=== PATIENT | female | born 1940 | race Caucasian/White ===

== ENCOUNTER → 2016-05-23 | Outpatient (CLI) | payer OTHER, BC ==
[~2016-05-23] MED LIST: ADVAIR 250-501 EACH INH; ALDACTONE25 MG PO; ALDACTONE50 MG PO; ALLERGY RELIEF10 M3 PO; ASA5UEC PO; ASA81BEC PO; ASPIRIN325 PO; ATENOLOL 25 MG25 M1 PO; ATENOLOL 50MG T50 M1 PO; BENZONATATE100 MG PO; BREO ELLIPTA 11 EACH IH; BYSTOLIC2.5 MG PO; CEPACOL SORE T1 EAC9 PO; CIPROFLOXACIN500 M1 PO; CYCLOBENZAPRINE5 MG PO; CYMBALTA60 MG PO; DURAGESIC1 EAC2 TD; FENTANYL PA12 MCG/H1 TP; FENTANYL PA12 MCG/HR TD; FENTANYL PA25 MCG/HR TD; FENTANYL PA25 MCG/HR TRANSDERM; FLEXERIL PO; FUROSEMIDE 80 M80 M1 PO; HYDROCODON-ACE1 EA12 PO; HYDROCODON-ACE1 EAC5 PO; HYDROCODON-ACE1 EAC7 PO; HYDROCODONE-APA1 TA1 PO; LANOXIN 0.120.125 M1 PO; LASIX 80 MG TAB80 MG; LASIX PO; LEVAQUIN 500 M500 M2 PO; LIDODERM 5%1 PATC1 TRANSDERM; LORTAB 5 MG/5001 TA1 PO; LORTAB 7.5/5001 TA3 PO; METHADONE HCL5 MG PO; MOBIC7.5 MG PO; MOVANTIK25 MG PO; MUCINEX TA600 MG/TA1 PO; MUPIROCIN15 GM TOP; NEURONTIN 300300 M1 PO; NEURONTIN600 MG PO; NORCO 10-325 T1 EAC1 PO; NORCO 10-325 T1 EACH PO; NORFLEX100 MG PO; NYSTATIN-TRIAMC15 GM TOP; PACERONE 200 M200 M1 PO; PANTOPRAZOLE SO40 M1 PO; PAXIL10 MG PO; PERCOCET 5-3251 EACH PO; POTASSIUM20 PO; PREDNISONE 10 M10 M1 PO; PRILOSEC 20 MG20 MG PO; PROTONIX 20 MG20 M1 PO; REQUIP0.5 MG PO; SALINE MIST45 ML NS; SINGULAIR 10 MG10 M1 PO; SPIRIVA INH; SULFACETAMIDE 115 M1 OP; TRAMADOL 50 MG50 MG PO; TRILEPTAL300 MG PO; VENTOLIN HFA 1818 GM INH; VICODIN 5-5001 EACH PO; VITAMIN D 5050000 I1 PO; XOPENEX 0.63 MG/3 M1 INH; XOPENEX HFA15 GM IH; XOPENEX0.31 MG/3 IH; ZOFRAN ODT4 MG PO; [UNRECOGNIZED DRUG - OTHER]; fentanyl TRANSDERM
--- NOTE | ~2016-05-23 | HPC ---
[facility] [place] [address] PAIN MANAGEMENT CONSULTATION Name: REGINA WINSTON Room #: REG LOUIS Rolando#: [id number] Admission: 05/23/16 Attend Phys: Rory Xiong DO Discharge: Date of : 40 Report #: [id number] THIS REPORT FOR: //name// CC: Sammie Xiong The patient is a 76-year-old female prior seen in the pain clinic 02/01/2016. She is typically treated for lumbar radiculopathy, chronic pain, component of neuropathic pain requiring complex medication management. She has been generally stable on 37 mcg of fentanyl (112/25 mcg patch) q. 72 hours, hydrocodone 7.5/325 p.r.n. for breakthrough, meloxicam 7.5 b.i.d. and Requip 0.5 one to two at bedtime. She returns to pain clinic today noting that while medications are sufficient for providing some degree of analgesia enabling her to participate in some activities of daily living she remains quite sedentary. She notes pain is primarily in low back, left leg radiating into the groin. She has fairly classic left L2/3 radicular symptoms. She rates the pain 6/10 presently. PHYSICAL EXAMINATION: Shows a 76-year-old female, obese, with a body mass index 47-48 kilograms per meter squared. Alert and oriented to person, place and time, judged to be a reasonable historian. Blood pressure is 142/68, pulse 91, respirations 16, rises from chair using armrest with assistance, markedly antalgic gait. Lower extremities show some general debilitation and weakness. Positive straight leg raise on the left. Diffuse tenderness across the low back. We reviewed the fact that opiate medications are being used to provide analgesia adequate to support activities of daily living, not attempting to achieve a specific pain score on the 0-10 Visual Analog Scale. The current opiate medications are providing sufficient analgesia to allow the patient to participate in activities of daily living. The patient is not exhibiting any aberrant behavior suggestive of drug diversion. The patient is not having any adverse reactions to medications. The patient is not suffering from daytime somnolence or mental acuity changes. The patient is managing opiate-induced constipation with appropriate kssv-ovp-tkyommu agents and dietary considerations. The patient was counseled on concern for caution with operating a motor vehicle while using opiate medications. A physical exam was performed and the patient's functional status was evaluated. All patients with back pain were advised against the bed rest greater than 4 days and were advised to return to normal activities. Pain score assessment was noted and the treatment plan was reviewed with the patient. All current medications, both prescribed and OTC were reviewed and reconciled on the electronic medical record. Tobacco screening was accomplished and smoking cessation was advised when indicated. BMI was noted and diet/exercise modification was recommended for all patients following outside normal [address] [address] PAIN MANAGEMENT CONSULTATION Name: REGINA WINSTON Room #: REG LOUIS Marshall#: [id number] Admission: 05/23/16 Attend Phys: Rory Xiong DO Discharge: Date of : 40 Report #: [id number] parameters. I reviewed with the patient today their responsibilities to safeguard prescription medications, reviewed their responsibility to utilize medications only as prescribed by the physician. They are to seek and receive pain medications only from 1 physician group ( [facility]). They are to use 1 pharmacy and keep the clinic informed if they change pharmacies. Their responsibilities include making followup visits in a timely fashion and to avoid abrupt discontinuation of medication usage. Their responsibilities further include bringing their medications (bottles from the pharmacy with residual pills) to the visit for possible confirmation of pill counts and the patient understands it is their responsibility to submit to random drug screens to ensure both that the medications prescribed are present, and that no other controlled substances are present. All prescriptions provided today were generated electronically. ASSESSMENT: 1. Chronic pain syndrome requiring complex medication management, neuropathic pain affecting lower extremities, stable on complex medication management. Recommendations: Renew Duragesic 25 and 12 mcg q 72 hours (total 37 mcg). I have taken the liberty of writing for 2 months of current medications, hydrocodone 7.5/325 120 tablets typically lasts about 2 months, meloxicam 7.5 once a day and Requip 0.5 one to two at bedtime. 2. Acute exacerbation of lumbar radicular symptoms. Recommendation: Lumbar epidural injection under fluoroscopy. PROCEDURE NOTE: After both written and informed consent to include risk of spinal cord damage, increased pain, weakness and dural puncture, the patient was taken to the fluoroscopy suite, placed in the prone position. After sterile prep and drape, a skin wheal with lidocaine was raised. A 4-1/2 inch 20-gauge Tuohy needle was inserted in the midline at L3-L4 with good loss to resistance. Negative aspiration for cerebrospinal fluid or blood was noted. Then 1 mL of Omnipaque under biplanar fluoroscopy showed good spread within the epidural space. This was followed with 80 mg of triamcinolone plus 1 mL of 1.5% preservative-free Xylocaine, 0.5 mL Xylocaine was then injected to flush the needle; it was removed. The patient was monitored for an appropriate period of time and discharged in good and stable condition. <ELECTRONICALLY SIGNED> By: Rory Xiong DO 05/26/16 1228 [id number] Rory Xiong DO /nt
[2016-05-23 12:52] VITALS: BP 142/68
== END | disposition home or self-care (01) ==
LOC: PAIN 07:02
DX: G89.4 Chronic pain syndrome (principal); M54.16 Radiculopathy, lumbar region

== ENCOUNTER → 2016-08-05 | Outpatient (CLI) | payer OTHER, BC | LOC: RAD 13:48 | DX: Z12.31 Encounter for screening mammogram for malignant neoplasm of breast (principal) ==

== ENCOUNTER → 2016-08-11 | Outpatient (CLI) | payer OTHER, BC ==
[~2016-08-11] VITALS: Ht 162.6 cm; Wt 245.0 kg
--- NOTE | ~2016-08-11 | HPC ---
[facility] [place] [place] [address] PAIN MANAGEMENT CONSULTATION Name: REGINA WINSTON Room #: REG LOUIS Rolando#: [id number] Admission: 08/11/16 Attend Phys: Rory Xiong DO Discharge: Date of : 40 Report #: [id number] THIS REPORT FOR: //name// CC: Sammie Xiong The patient is a very pleasant 76-year-old female, typically treated for lumbar radiculopathy, neuropathic pain requiring complex medication management, comorbidity includes deconditioning and atrial fibrillation/flutter. The patient was last seen in the pain clinic 05/23/2016, given epidural injection under fluoroscopy. He returns to pain clinic today for prolonged visit, she is seen in the company of 1 daughter (she has I believe 11 children, they are all supportive). Today, we reviewed current issues. Baseline opiate medications including Duragesic at 37 mcg (25 mcg +12 mcg patches worn concurrently), hydrocodone 7.5/325 zero-three tablets a day, limit 120 tablets for 60 days; Requip 0.5 one-two at bedtime and Meloxicam 7.5 one a day continued unchanged. Today, I did review her chart, reviewing various hospitalizations, I noticed between 2011 and 2014, her EGFR has run fairly low down to 32 at one point and the high of 55. With this in mind, I suggested that we simply discontinue even the low dose Meloxicam (7.5 mg 1 a day). The patient notes she has lost some weight about 20 pounds. The daughter with whom she lives and she had both been dieting, eating smaller portion that and more fiber. We did incidentally talked about opiate-induced constipation. I trialled Movantik in the past, but it was quite costly. Ultimately, they have been using MiraLax with rare stool softener and again increasing /fiber in the diet. She notes the injections have always afforded good relief, she has had 4 epidural injections in 2015 and again last injection was 05/23/2016, at L3-L4, it afforded good relief, but she had a fair bit of increased activity subsequent and she felt she did not quiet get the longer term relief that she typically gets. She got 50-60% relief for greater than 6 weeks, but the pain has recurred. During our wide-ranging conversation, she mentioned a friend of the family who had had CVA, we did take this time to talk about end of life concerns. She does have a DPOA (durable power of deputy prosecuting attorney) and a living will. She has made known to all of her family members, primarily to 2 daughters who are RNs about her end of life wishes. [address] [address] PAIN MANAGEMENT CONSULTATION Name: MALA WINSTONREGINA C Room #: REG LOUIS Marshall#: [id number] Admission: 08/11/16 Attend Phys: Rory Xiong DO Discharge: Date of : 40 Report #: [id number] We reviewed the fact that opiate medications are being used to provide analgesia adequate to support activities of daily living, not attempting to achieve a specific pain score on the 0-10 Visual Analog Scale. The current opiate medications are providing sufficient analgesia to allow the patient to participate in activities of daily living. The patient is not exhibiting any aberrant behavior suggestive of drug diversion. The patient is not having any adverse reactions to medications. The patient is not suffering from daytime somnolence or mental acuity changes. The patient is managing opiate-induced constipation with appropriate ndny-pab-dmpmwmq agents and dietary considerations. The patient was counseled on concern for caution with operating a motor vehicle while using opiate medications. A physical exam was performed and the patient's functional status was evaluated. All patients with back pain were advised against the bed rest greater than 4 days and were advised to return to normal activities. Pain score assessment was noted and the treatment plan was reviewed with the patient. All current medications, both prescribed and OTC were reviewed and reconciled on the electronic medical record. Tobacco screening was accomplished and smoking cessation was advised when indicated. BMI was noted and diet/exercise modification was recommended for all patients following outside normal parameters. I reviewed with the patient today their responsibilities to safeguard prescription medications, reviewed their responsibility to utilize medications only as prescribed by the physician. They are to seek and receive pain medications only from 1 physician group ( [facility]). They are to use 1 pharmacy and keep the clinic informed if they change pharmacies. Their responsibilities include making followup visits in a timely fashion and to avoid abrupt discontinuation of medication usage. Their responsibilities further include bringing their medications (bottles from the pharmacy with residual pills) to the visit for possible confirmation of pill counts and the patient understands it is their responsibility to submit to random drug screens to ensure both that the medications prescribed are present, and that no other controlled substances are present. All prescriptions provided today were generated electronically. PHYSICAL EXAMINATION: Shows a pleasant 76-year-old female, alert and oriented to person, place, and time, judged to be a reasonable historian, quite oriented, little deconditioned. She uses a walker at home, she is in a wheelchair presently, she can transition by herself from chair to bed and toilet. She does use a bedside commode at night. Lower extremity strength is symmetric, +1 pretibial edema. Heart is irregularly irregular. Diffuse tenderness across the low back, positive straight leg raise bilaterally. ASSESSMENT: 1. Lumbar radiculopathy, neuropathic pain, chronic pain syndrome requiring [facility] [address] [place] [address] PAIN MANAGEMENT CONSULTATION Name: REGINA WINSTON Room #: [facility].#: [id number] Admission: 08/11/16 Attend Phys: Rory Xiong DO Discharge: Date of : 40 Report #: [id number] complex medication management, generalized deconditioning. 2. Acute exacerbation of lumbar radiculopathy secondary to spinal stenosis. RECOMMENDATION: Again prolonged visit today, greater than 25 minutes was spent counseling the patient about therapeutic options. We have elected to continue Duragesic total of 37 mcg q.72 hours. Continue hydrocodone 7.5/325, limit 120 tablets for 6 days. Discontinue Meloxicam due to modest renal function. We will continue Requip 0.5 one-two at bedtime. PROCEDURE: Lumbar epidural injection under fluoroscopy. PROCEDURE NOTE: After both written and informed consent to include risk of spinal cord damage, increased pain, weakness and dural puncture, the patient was taken to the fluoroscopy suite, placed in the prone position. After sterile prep and drape, a skin wheal with lidocaine was raised. A 4-1/2-inch 20-gauge epidural Tuohy needle was inserted in the midline at L3-L4 with good loss to resistance. Negative aspiration for cerebrospinal fluid or blood was noted. Then 1 mL of Omnipaque under biplanar fluoroscopy showed good spread within the epidural space. This was followed with 80 mg of triamcinolone plus 1 mL of 1.5% preservative-free Xylocaine, 0.5 mL Xylocaine was then injected to flush the needle; it was removed. The patient was monitored for an appropriate period of time and discharged in good and stable condition. By: [id number] Rory Xiong DO /nt
[2016-08-11 11:28] VITALS: BP 118/58
== END | disposition home or self-care (01) ==
LOC: PAIN 06:53
DX: M48.06 Spinal stenosis, lumbar region (principal); G89.4 Chronic pain syndrome; I48.91 Unspecified atrial fibrillation; F11.20 Opioid dependence, uncomplicated

== ENCOUNTER → 2016-11-27 | Outpatient (CLI) | payer OTHER, BC ==
[~2016-11-27] VITALS: Ht 162.6 cm; Wt 111.1 kg
[~2016-11-27] MED LIST changes: +ELIQUIS5 MG PO
--- NOTE | ~2016-11-27 | HPC ---
[facility] [place] [address] PAIN MANAGEMENT CONSULTATION Name: REGINA WINSTON Room #: REG LAURENDavid Marshall#: [id number] Admission: 11/27/16 Attend Phys: Rory Xiong DO Discharge: Date of : 40 Report #: [id number] THIS REPORT FOR: //name// CC: Sammie Xiong DATE OF SERVICE: 11/27/2016 The patient is a pleasant 76-year-old female being treated for chronic axial back pain, neuropathic pain requiring complex medication management, history of lumbar radiculopathy. The patient was last seen in the pain clinic 08/11/2016. We did lumbar epidural injection at that time with excellent improvement for about 2 months, though pain has recurred. She uses complex high risk medications, this includes Duragesic 37 mcg (one 12 mcg patch and one 25 mcg patch simultaneously q. 72 hours). She has prescription for hydrocodone which she typically does not require the first 2 months after epidural injection, though she does take 7.5/325 tablets up to 4 times a day in the third month after epidural injections and requires these. We had started the patient on Requip and that seems to help with restless legs syndrome, she uses a 0.5 mg tablet 1-2 at bedtime. Returns to pain clinic today noting that medications do provide sufficient analgesia to participate in activities of daily living, though she admits she is quite sedentary. Again, in the last month, she has been even more sedentary. She has poor renal function. We had discontinued meloxicam due to same. She notes pain wraps around the groin and down the front of the leg to the knee. She takes MiraLax for constipation. She is in a wheelchair today, though she states she does get up and walks the dog and do some activities throughout the day. She does describe chronic constant aching pain that she rates at 8 on a VAS. Uses ice and elevates her legs to help with pain. We reviewed the fact that opiate medications are being used to provide analgesia adequate to support activities of daily living, not attempting to achieve a specific pain score on the 0-10 Visual Analog Scale. The current opiate medications are providing sufficient analgesia to allow the patient to participate in activities of daily living. The patient is not exhibiting any aberrant behavior suggestive of drug diversion. The patient is not having any adverse reactions to medications. The patient is not suffering from daytime somnolence or mental acuity changes. The patient is managing opiate-induced constipation with appropriate zzff-tju-eqtdqkr agents and dietary considerations. The patient was counseled on concern for caution with operating a motor vehicle while using opiate medications. A physical exam was performed and the patient's functional status was evaluated. All patients with back pain were advised against the bed rest greater than 4 days and were advised to return to normal activities. Pain score assessment was [address] [address] PAIN MANAGEMENT CONSULTATION Name: REGINA WINSTON Room #: REG [facility] Rolando#: [id number] Admission: 11/27/16 Attend Phys: Rory Xiong DO Discharge: Date of : 40 Report #: [id number] noted and the treatment plan was reviewed with the patient. All current medications, both prescribed and OTC were reviewed and reconciled on the electronic medical record. Tobacco screening was accomplished and smoking cessation was advised when indicated. BMI was noted and diet/exercise modification was recommended for all patients following outside normal parameters. I reviewed with the patient today their responsibilities to safeguard prescription medications, reviewed their responsibility to utilize medications only as prescribed by the physician. They are to seek and receive pain medications only from 1 physician group ( [facility]). They are to use 1 pharmacy and keep the clinic informed if they change pharmacies. Their responsibilities include making followup visits in a timely fashion and to avoid abrupt discontinuation of medication usage. Their responsibilities further include bringing their medications (bottles from the pharmacy with residual pills) to the visit for possible confirmation of pill counts and the patient understands it is their responsibility to submit to random drug screens to ensure both that the medications prescribed are present, and that no other controlled substances are present. All prescriptions provided today were generated electronically. PHYSICAL EXAMINATION: Shows an obese 76-year-old female, BMI is 42 kilograms per meter squared. Vital signs are stable as noted on the EMR. Rises from the chair using armrest. Has markedly antalgic gait, diffuse tenderness across the low back, has somewhat of an ataxic gait, poor balance. Lower extremity strength is diminished, but symmetric. Straight leg raise is positive on the left side. There is some slight decreased left plantar flexion and flexion strength. ASSESSMENT #1: Chronic lumbar radiculopathy secondary to spinal stenosis, general debilitation, neuropathic pain affecting her feet requiring complex high risk medications. History of comorbidity including atrial fibrillation for which she is anticoagulated, she has been off of her Eliquis for 7 days. RECOMMENDATION: Continue combination Duragesic patches, 12 and 25 mcg for a total of 37 mcg q. 72 hours, continue Requip 0.5 mg 1-2 at bedtime. I have taken the liberty of writing for 3 months of current medications. We will also renew hydrocodone 7.5/325, 120 tablets. Again, this typically lasts about 3 months. ASSESSMENT #2: Acute exacerbation of lumbar radiculopathy. RECOMMENDATIONS: Epidural injection under fluoroscopy today at L3-L4. PROCEDURE NOTE: After written informed consent was obtained, the patient was placed in the supine position on the gurney, taken into the procedure room and [facility] [address] [place] [address] PAIN MANAGEMENT CONSULTATION Name: REGINA WINSTON Room #: REG [facility].#: [id number] Admission: 11/27/16 Attend Phys: Rory Xiong DO Discharge: Date of : 40 Report #: [id number] rolled onto the prone position. PROCEDURE: Lumbar epidural steroid injection. PROCEDURE NOTE: After both written and informed consent to include risk of spinal cord damage, increased pain, weakness and dural puncture, the patient was taken to the fluoroscopy suite, placed in the prone position. After sterile prep and drape, a skin wheal with lidocaine was raised. A 4-1/2-inch 20-gauge epidural Tuohy needle was inserted in the midline at L3-L4 with good loss to resistance. Negative aspiration for cerebrospinal fluid or blood was noted. Then 1 mL of Omnipaque under biplanar fluoroscopy showed good spread within the epidural space. This was followed with 80 mg of triamcinolone plus 1 mL of 1.5% preservative-free Xylocaine, 0.5 mL Xylocaine was then injected to flush the needle; it was removed. The patient was monitored for an appropriate period of time and discharged in good and stable condition. By: [id number] Rory Xiong DO /sheldon
[2016-11-27 09:50] VITALS: BP 123/67
== END | disposition home or self-care (01) ==
LOC: PAIN 07:14
DX: M48.06 Spinal stenosis, lumbar region (principal); M54.16 Radiculopathy, lumbar region; G89.29 Other chronic pain; I48.91 Unspecified atrial fibrillation; Z88.8 Allergy status to other drugs, medicaments and biological substances; Z79.891 Long term (current) use of opiate analgesic

== ENCOUNTER → 2017-03-09 | Outpatient (CLI) | payer OTHER, BC ==
[~2017-03-09] VITALS: Ht 162.6 cm; Wt 125.5 kg
[~2017-03-09] MED LIST changes: +DURAGESIC1 EACH TRANSDERM; +DURAGESIC25 MCG/HR TRANSDERM; +MIRAPEX0.5 MG PO; +NORCO 7.5-3251 EACH PO
--- NOTE | ~2017-03-09 | HPC ---
[facility] [address] [place] [address] PAIN MANAGEMENT CONSULTATION Name: REGINA WINSTON Yves Room #: REG LOUIS Marshall#: [id number] Admission: 03/09/17 Attend Phys: Rory Xiong DO Discharge: Date of : 40 Report #: [id number] THIS REPORT FOR: //name// CC: Sammie Xiong The patient is a 76-year-old female well known to pain clinic, typically treated for lumbar radiculopathy, axial back pain, neuropathic pain requiring high risk complex medication management. She was last seen in the pain clinic 11/27/2016. She was given epidural injection then and she had given a prior injection back in July. She has continued on Duragesic 25 mcg +12 mcg (total 37 mcg q.72 hours), hydrocodone 7.5/325. Typically after an epidural injection, she will not require any p.r.n. hydrocodone for a number of months, about the second or third months, she will start to use hydrocodone 7.5/325 up to 4 a day. She returns to pain clinic today. We had a prolonged visit discussing therapeutic options with the patient and her daughter. She is concerned that she is unable to afford some of her medications. She notes that the Duragesic patches are quite costly, the 12 mcg of Duragesic patch cost about $180, curiously the 25 mcg patches last at about $130. If we were to increase her to a 50 mcg patch that typically runs about $300 for 10 patches. She has been off her Eliquis for 5 days, she note pain is recurring, she rates it an 8 on VAS, pain across the low back, left hip and groin. She uses a walker nearly 100% of the time when she is up, she use it primarily for balance. She is becoming more and more sedentary. She suffers from some chronic lymphedema. She is concerned that gabapentin may be exacerbating this. She does take 600 mg b.i.d. and I did agree that this is a common side effects of gabapentin; however, we will try a lower dose if she has had increasing pain. PHYSICAL EXAMINATION: Otherwise unchanged 76-year-old female, morbidly obese, BMI is 47.5 kg/m2. Vital signs stable as noted in the EMR. Very difficult time rising from the chair, even just move to the bed. Lower extremity strength is diminished. Positive straight leg raise bilaterally, left greater than right. Diffuse tenderness across the low back. We reviewed the fact that opiate medications are being used to provide analgesia adequate to support activities of daily living, not attempting to achieve a specific pain score on the 0-10 Visual Analog Scale. The current opiate medications are providing sufficient analgesia to allow the patient to participate in activities of daily living. The patient is not exhibiting any aberrant behavior suggestive of drug diversion. The patient is not having any adverse reactions to medications. The patient is not suffering from daytime somnolence or mental acuity changes. The patient is managing opiate-induced constipation with appropriate zbod-vyb-sjxtxab agents and dietary considerations. The patient was counseled on concern for caution with operating [address] [address] PAIN MANAGEMENT CONSULTATION Name: MALA WINSTONREGINA C Room #: REG LOUIS Marshall#: [id number] Admission: 03/09/17 Attend Phys: Rory Xiong DO Discharge: Date of : 40 Report #: [id number] a motor vehicle while using opiate medications. A physical exam was performed and the patient's functional status was evaluated. All patients with back pain were advised against the bed rest greater than 4 days and were advised to return to normal activities. Pain score assessment was noted and the treatment plan was reviewed with the patient. All current medications, both prescribed and OTC were reviewed and reconciled on the electronic medical record. Tobacco screening was accomplished and smoking cessation was advised when indicated. BMI was noted and diet/exercise modification was recommended for all patients following outside normal parameters. I reviewed with the patient today their responsibilities to safeguard prescription medications, reviewed their responsibility to utilize medications only as prescribed by the physician. They are to seek and receive pain medications only from 1 physician group ( [facility]). They are to use 1 pharmacy and keep the clinic informed if they change pharmacies. Their responsibilities include making followup visits in a timely fashion and to avoid abrupt discontinuation of medication usage. Their responsibilities further include bringing their medications (bottles from the pharmacy with residual pills) to the visit for possible confirmation of pill counts and the patient understands it is their responsibility to submit to random drug screens to ensure both that the medications prescribed are present, and that no other controlled substances are present. All prescriptions provided today were generated electronically. ASSESSMENT: Symptomatic lumbar radiculopathy, axial back pain, neuropathic pain requiring high risk complex medication management. RECOMMENDATIONS: 1. Epidural injection under fluoroscopy today for acute lumbar radicular pain. 2. Regarding chronic pain concerns, neuropathic pain, axial back pain and high risk complex medication management, we discussed cost concerns for medication. I have written for both 25 and 12 mcg of Duragesic patches; however, I suggested that they start by filling only the 25 mcg patch. I have increased her hydrocodone from 7.5 to 10/325, I suggest she takes this 3-4 times a day for breakthrough pain. With a lower basal medication (decreasing Duragesic from 37-25 mcg), she may get better efficacy and the hydrocodone will be much less expensive than the second set of Duragesic patch has (the 12 mcg patches). Nonetheless, if this does not afford adequate relief, I did provide them with a prescription for the 12 mcg Duragesic patches as well and I also did generate today a prescription for hydrocodone 7.5/325, which we will leave on the chart. If the patient is unable to get buy using 25 mcg patches and has to escalate to the 37 mcg Duragesic combination, we will enable her to fruit or nut picker the lower dose, 7.5 mg hydrocodone prescription, but we will ask her to bring back the 4-week [facility] [address] [place] [address] PAIN MANAGEMENT CONSULTATION Name: REIGNA WINSTON Room #: REG [facility] Rolando#: [id number] Admission: 03/09/17 Attend Phys: Rory Xiong DO Discharge: Date of : 40 Report #: [id number] release 10 mg hydrocodone prescription. PROCEDURE: Lumbar epidural injection under fluoroscopy. PROCEDURE NOTE: After both written and informed consent to include risk of spinal cord damage, increased pain, weakness and dural puncture, the patient was taken to the fluoroscopy suite, placed in the prone position. After sterile prep and drape, a skin wheal with lidocaine was raised. A 4-1/2-inch 20-gauge epidural Tuohy needle was inserted in the midline at L4-L5 with good loss to resistance. Negative aspiration for cerebrospinal fluid or blood was noted. Then 1 mL of Omnipaque under biplanar fluoroscopy showed good spread within the epidural space. This was followed with 80 mg of triamcinolone plus 1 mL of 1.5% preservative-free Xylocaine, 0.5 mL Xylocaine was then injected to flush the needle; it was removed. The patient was monitored for an appropriate period of time and discharged in good and stable condition. <ELECTRONICALLY SIGNED> By: Rory Xiong DO 03/16/17 1401 1700 2134 Rory Xiong DO /nt
[2017-03-09 12:46] VITALS: BP 134/64
== END | disposition home or self-care (01) ==
LOC: PAIN 06:17
DX: M54.16 Radiculopathy, lumbar region (principal); G62.9 Polyneuropathy, unspecified; Z68.42 Body mass index [BMI] 45.0-49.9, adult; E66.01 Morbid (severe) obesity due to excess calories

== ENCOUNTER 2017-03-27 15:07 | Inpatient (IN) | payer OTHER, BC ==
[~2017-03-27] VITALS: Ht 162.6 cm; Wt 130.4 kg
[2017-03-27] VITALS (16 sets, daily range): BP systolic 125–155; BP diastolic 63–102
--- NOTE | ~2017-03-27 | EKG ---
[address] [address] ELECTROCARDIOGRAM REPORT Name: REGINA WINSTON Room #: 238- ADM IN M.R.#: [id number] Admission: 03/27/17 Attend Phys: Be Arellano MD Discharge: Date of : 40 Report #: [id number] THIS REPORT FOR: //name// [facility] Test Date: 2017-03-28 Test Time: 12:33:18 Pat Name: REGINA WINSTON Department: Room: 238 Gender: F Home Office Representative: ros : 1940 Requested By: Ryley Nesbitt Order Number: [id number] MD: Remington Holcomb Measurements Intervals [place] Rate: 83 P: [place]: QRS: 27 QRSD: 94 T: 32 QT: 384 QTc: 452 Interpretive Statements Atrial fibrillation Baseline wander in lead(s) V1 Compared to ECG 09/08/2014 16:00:20 Atrial flutter no longer present ST (T wave) deviation no longer present Prolonged QT interval no longer present Electronically Signed On 03-28-2017 12:50:01 REAL ESTATE APPRAISER SUPERVISOR by Remington Holcomb [email or web address] <ELECTRONICALLY SIGNED> By: Remington Holcomb MD 03/28/17 1250 1233 1233 Remington Holcomb MD /EPI
--- NOTE | ~2017-03-27 | EKG ---
[address] [address] ELECTROCARDIOGRAM REPORT Name: REGINA WINSTON Room #: 238- ADM IN M.R.#: [id number] Admission: 03/27/17 Attend Phys: Be Arellano MD Discharge: Date of : 40 Report #: [id number] THIS REPORT FOR: //name// [facility] Test Date: 2017-03-27 Test Time: 15:16:49 Pat Name: REGINA WINSTON Department: Room: [facility] Gender: F Strategic Intelligence Officer: [id number] : 1940 Requested By: Mily Mendoza Order Number: [id number] MD: Remington Holcomb Measurements Intervals [place] Rate: 149 P: [place]: QRS: 69 QRSD: 93 T: 37 QT: 294 QTc: 463 Interpretive Statements Atrial fibrillation with rapid V-rate Paired ventricular premature complexes Compared to ECG 09/08/2014 16:00:20 Electronically Signed On 03-28-2017 12:42:09 SIGNING TEACHER by Remington Holcomb [email or web address] <ELECTRONICALLY SIGNED> By: Remington Holcomb MD 03/28/17 1242 1516 Remington Holcomb MD /EDITH
--- NOTE | ~2017-03-27 | HC ---
[facility] [place] [address] CONSULTATION Name: MALA WINSTONREGINA Yves Room #: 246-P ADM IN M.R.#: [id number] Admission: 03/27/17 Attend Phys: Be Arellano MD Discharge: Date of : 40 Report #: [id number] THIS REPORT FOR: //name// CC: Be Quintanilla REASON FOR CONSULTATION: I was asked to evaluate the patient concerning bilateral pulmonary infiltrates. HISTORY OF PRESENT ILLNESS: The patient was a 77-year-old with underlying history of asthma, complained of increasing cough, congestion, shortness of breath, approximately 5 days prior to her admit. Treated with corticosteroids and Bactrim without improvement. It is noted that family member had been sick prior to this with upper respiratory tract infection. The patient was admitted now in intensive care unit on BiPAP most of the day. Today, she has been on 4 liters of oxygen per nasal cannula and doing reasonably well, although continues to have cough, which is mostly nonproductive. She remains dyspneic with exertion. She has atrial fibrillation, which has been controlled. No HIV risk factors. No travel outside the Check. IMMUNIZATIONS: Up-to-date. ALLERGIES: AUGMENTIN, CLARITHROMYCIN. MEDICATIONS: As noted on her MAR including Levaquin and Solu-Medrol. PAST MEDICAL HISTORY: Asthma, atrial fibrillation, benign neoplasm of the thyroid, coronary artery disease, gastroesophageal reflux, lymphedema of lower extremities with peripheral vascular disease, chronic back pain. FAMILY HISTORY: Noncontributory. SOCIAL HISTORY: Nonsmoker, no significant alcohol intake. REVIEW OF SYSTEMS: Denies any GI or complaints. Does have lower extremity edema. PHYSICAL EXAMINATION: VITAL SIGNS: She is afebrile, hemodynamically stable. Now on 4 liters of oxygen per nasal cannula. Obese. EXTREMITIES: 2+ lower extremity edema with venous stasis dermatitis changes with reactive erythema. HEENT: Unremarkable. NECK: Supple. LUNGS: Scattered wheezes throughout both lung reyes. No consolidation. HEART: Regular without appreciable murmur, gallop or rub. [facility] [address] [place] [address] CONSULTATION Name: MALA WINSTONREGINA C Room #: [address] [place] [address] IN M.R.#: [id number] Admission: 03/27/17 Attend Phys: Be Arellano MD Discharge: Date of : 40 Report #: [id number] ABDOMEN: Obese, nontender, no hepatosplenomegaly or mass appreciated. LABORATORY STUDIES: Sodium 138, potassium 4.5, bicarbonate 25, creatinine 0.8. Liver function test normal. BNP was 882. Hemoglobin 12.6, white count is 10.8, platelet count 205,000. Influenza antigen negative. Viral respiratory panel is pending. Urinalysis, moderate bacteria. Urine antigen negative for legionella, strep pneumo. Sputum culture, mixed berto. Blood cultures negative today. Chest x-ray: Mild cardiomegaly with interstitial infiltrates most consistent with edema. IMPRESSION: A 77-year-old with asthma, likely community-acquired pneumonia and some heart failure along with this. Still has significant oxygen requirements. So far no organisms have been identified. I am awaiting viral respiratory panel. Other consideration would be mycoplasma. Would recommend continuing antibiotic coverage. Note the patient's allergy history. We will continue her current antibiotic coverage. Although Levaquin is not first line for mycoplasma, it should be adequate for what we are dealing with at this time. We will await viral respiratory panel. We will add mycoplasma serology. Try to diurese. It is noted that her echocardiogram showed normal EF. <ELECTRONICALLY SIGNED> By: Juan Epps MD 03/31/17 0901 1300 1856 Juan Epps MD /nt
--- NOTE | ~2017-03-27 | EKG ---
[address] [address] ELECTROCARDIOGRAM REPORT Name: REGINA WINSTON Room #: 246- ADM IN M.R.#: [id number] Admission: 03/27/17 Attend Phys: Be Arellano MD Discharge: Date of : 40 Report #: [id number] THIS REPORT FOR: //name// [facility] Test Date: 2017-03-31 Test Time: 06:51:51 Pat Name: REGINA WINSTON Department: Room: [facility] Gender: F Combo Welder: DAMION : 1940 Requested By: Jenifer Augustin Order Number: [id number] MD: Gabe Manriquez Measurements Intervals [place] Rate: 84 P: [place]: QRS: 58 QRSD: 92 T: 51 QT: 394 QTc: 466 Interpretive Statements Atrial fibrillation Low voltage in the precordial leads Compared to ECG 03/30/2017 07:17:00 Low voltage is now present Electronically Signed On 03-31-2017 7:49:43 JOY OPERATOR by Gabe Manriquez [email or web address] <ELECTRONICALLY SIGNED> By: Gabe Manriquez MD, [facility] 03/31/17 0749 0651 Gabe Manriquez MD, [facility] /EPI
--- NOTE | ~2017-03-27 | 2DMMODE ---
[facility] [address] [place] [address] 2 D/M-MODE ECHOCARDIOGRAM Name: REGINA WINSTON Room #: 238-P [facility] IN ..#: [id number] Admission: 03/27/17 Attend Phys: Be Arellano MD Discharge: Date of : 40 Date of Service: 03/28/17 1237 Report #: [id number] THIS REPORT FOR: //name// APPROVED REPORT Study performed: 03/28/2017 10:51:04 EXAM: Comprehensive 2D, Doppler, and color-flow Echocardiogram Patient Location: ICU Room #: 238 Status: on-call BSA: 2.24 HR: 97 bpm BP: 139/87 mmHg Rhythm: Atrial Fibrillation Other Information Study Quality: Adequate Technically limited study due to body habitus. Indications Afib, COPD, short of breath. Hx: CHF, chronic Afib. 2D Dimensions LVEF(%): 63.08 (>50%) IVSd: 10.56 (7-11mm) LVOT Diam: 18.85 (18-24mm) LVDd: 42.29 mm PWd: 9.57 (7-11mm) LVDs: 27.97 (25-40mm) Aortic Root: 33.35 mm Betts's LVEF: 63.08 % Aortic Valve AoV Peak Tyrell.: 2.29 m/s AO Peak Gr.: 21.15 mmHg LVOT Max P.23 mmHg AO Mean Gr.: 12.32 mmHg AO V2 Mean: 1.68 m/s LVOT Max V: 1.74 m/s AO V2 VTI: 47.23 cm DANIELLE Vmax: 2.11 cm2 Mitral Valve MV Decel. Time: 237.74 ms MV E Max Tyrell.: 1.31 m/s Pulmonary Valve [facility] [address] [address] 2 D/M-MODE [facility]IO[facility] #: [facility] IN .R.#: [id number] Admission: 03/27/17 Attend Phys: Be Arellano MD Discharge: Date of : 40 Date of Service: 03/28/17 1237 Report #: [id number] PV Peak Tyrell.: 1.15 m/s PV Peak Gr.: 5.30 mmHg Tricuspid Valve TR Peak Tyrell.: 3.01 m/s RAP Estimate: 10.00 mmHg TR Peak Gr.: 36.26 mmHg Left Ventricle The left ventricle is normal size. There is normal left ventricular wall thickness. Left ventricular systolic function is normal. LVEF is 60-65%. This study is not technically sufficient to allow evaluation of the LV diastolic function due to atrial fibrillation. Right Ventricle Right ventricle is mildly dilated. The right ventricular systolic function is normal. Atria Left atrium is dilated. Right atrium is dilated. Aortic Valve Aortic valve is mildy calcified. Trace to mild aortic regurgitation. There is no aortic valvular stenosis. Mitral Valve The mitral valve is normal in structure. Moderate mitral annular calcification. Mild mitral regurgitation. No evidence of mitral valve stenosis. Tricuspid Valve The tricuspid valve is normal in structure. Moderate tricuspid regurgitation. Moderate pulmonary hypertension. Estimated PAP is 45-50mmHg. Pulmonic Valve Pulmonic valve is not well visualized. Trace pulmonic regurgitation. Great Vessels The aortic root is normal in size. The ascending aorta is normal in size. IVC is dilated and collapses <50% with inspiration. Pericardium There is no pericardial effusion. <Conclusion> [facility] [address] [place] [address] 2 D/M-MODE ECHOCARDIOGRAM Name: MALA WINSTONREGINA C Room #: 238-P [facility] IN ..#: [id number] Admission: 03/27/17 Attend Phys: Be Arellano MD Discharge: Date of : 40 Date of Service: 03/28/17 1237 Report #: [id number] The left ventricle is normal size. There is normal left ventricular wall thickness. Left ventricular systolic function is normal. LVEF is 60-65%. Right ventricle is mildly dilated. The right ventricular systolic function is normal. Left atrium is dilated. Right atrium is dilated. Aortic valve is mildy calcified. There is no aortic valvular stenosis. The mitral valve is normal in structure. Moderate mitral annular calcification. Mild mitral regurgitation. No evidence of mitral valve stenosis. The tricuspid valve is normal in structure. Moderate tricuspid regurgitation. Moderate pulmonary hypertension. Estimated PAP is 45-50mmHg. There is no pericardial effusion. <ELECTRONICALLY SIGNED> By: Remington Holcomb MD 03/28/17 1237 1237 1237 Remington Holcomb MD /INF
--- NOTE | ~2017-03-27 | EKG ---
[address] [address] ELECTROCARDIOGRAM REPORT Name: REGINA WINSTON Room #: 246-P ADM IN M.R.#: [id number] Admission: 03/27/17 Attend Phys: Be Arellano MD Discharge: Date of : 40 Report #: [id number] THIS REPORT FOR: //name// [facility] Test Date: 2017-03-29 Test Time: 09:15:26 Pat Name: ERGINA WINSTON Department: Room: 246 Gender: F Centerless Grinder: FAVIAN : 1940 Requested By: Jenifer Augustin Order Number: [id number] MD: Remington Holcomb Measurements Intervals [place] Rate: 106 P: [place]: QRS: 54 QRSD: 96 T: 22 QT: 341 QTc: 453 Interpretive Statements Atrial fibrillation Abnormal R-wave progression, late transition Compared to ECG 03/28/2017 12:33:18 No significant changes Electronically Signed On 03-29-2017 16:11:12 HASHER OPERATOR by Remington Holcomb [email or web address] <ELECTRONICALLY SIGNED> By: Remington Holcomb MD 03/29/17 1611 4 4 Remington Holcomb MD /EDITH
--- NOTE | ~2017-03-27 | EKG ---
[address] [address] ELECTROCARDIOGRAM REPORT Name: REGINA WINSTON Room #: 211- ADM IN M.R.#: [id number] Admission: 03/27/17 Attend Phys: Be Arellano MD Discharge: Date of : 40 Report #: [id number] THIS REPORT FOR: //name// [facility] Test Date: 2017-04-01 Test Time: 06:14:56 Pat Name: REGINA WINSTON Department: Room: 211 Gender: F Hand Sample Maker: DAMION : 1940 Requested By: Monroe Hay Order Number: [id number] MD: Gabe Manriquez Measurements Intervals [place] Rate: 89 P: [place]: QRS: 68 QRSD: 97 T: 51 QT: 395 QTc: 481 Interpretive Statements Atrial fibrillation Compared to ECG 03/31/2017 06:51:51 No significant changes Electronically Signed On 04-01-2017 8:54:30 GREENS PLANTER by Gabe Manriquez [email or web address] <ELECTRONICALLY SIGNED> By: Gabe Manriquez MD, [facility] 04/01/17 0854 3 Gabe Manriquez MD, [facility]ACC /EPI
--- NOTE | ~2017-03-27 | EKG ---
[address] [address] ELECTROCARDIOGRAM REPORT Name: REGINA WINSTON Room #: 246- ADM IN M.R.#: [id number] Admission: 03/27/17 Attend Phys: Be Arellano MD Discharge: Date of : 40 Report #: [id number] THIS REPORT FOR: //name// [facility] Test Date: 2017-03-30 Test Time: 07:17:00 Pat Name: REGINA WINSTON Department: Room: [facility] Gender: F Plate Mounter: DAMION : 1940 Requested By: Jenifer Augustin Order Number: [id number] MD: Gabe Manriquez Measurements Intervals [place] Rate: 83 P: [place]: QRS: 60 QRSD: 100 T: 44 QT: 396 QTc: 466 Interpretive Statements Atrial fibrillation Compared to ECG 03/29/2017 09:15:26 No significant changes Electronically Signed On 03-30-2017 8:00:24 DIRECTOR OF ELEMENTARY EDUCATION by Gabe Manriquez [email or web address] <ELECTRONICALLY SIGNED> By: Gabe Manriquez MD, [facility] 03/30/17 08 6 6 Gabe Manriquez MD, FACC /EPI
--- NOTE | ~2017-03-27 | HC ---
[facility] [place] [address] CONSULTATION Name: REGINA WINSTON Yves Room #: [facility] IN .R.#: [id number] Admission: 03/27/17 Attend Phys: Be Arellano MD Discharge: 04/02/17 Date of : 40 Report #: [id number] THIS REPORT FOR: //name// CC: Be Quintanilla DATE OF SERVICE: 03/30/2017 HISTORY OF PRESENT ILLNESS: The patient is a 77-year-old white female admitted with increased shortness of breath, noted to have acute on chronic respiratory failure. She has been diagnosed with a lower respiratory tract infection with acute hypercapnic with hypoxemic respiratory failure. She also has some interstitial edema with mild CHF. She is currently in the intensive care unit with Pulmonary Medicine involved as well as Cardiology with a history of atrial fibrillation with rapid ventricular rate. She has been on Cardizem for rate control with Eliquis for anticoagulation. She has a premorbid history of chronic lower back pain with intermittent corticosteroid injections with radiculopathy and neuropathy. This was noted to be idiopathic neuropathy per her history. She has medical complexity with generalized debilitation. We are seeing her in rehabilitation medicine consultation. PAST MEDICAL HISTORY: Includes colon cancer with colon resection in 2005, right hip replacement in 2007, left hip replacement, cholecystectomy, ablation of the heart x 3 for atrial fibrillation, CHF, GERD, lymphedema, asthma with COPD, sinusitis, atrial fibrillation with flutter, macular degeneration, lumbar spinal stenosis with peripheral neuropathy, pancreatitis, and septic arthritis. MEDICATIONS: Please see the full medication listing. ALLERGIES: CLARITHROMYCIN AND CLAVULANIC ACID. HABITS: No history of tobacco or alcohol abuse. SOCIAL HISTORY: Lives in a house with her daughter and son. The daughter is a nurse and works part-time out of the home. Typically, the daughter of the son will be with the patient. She was able to ambulate short distances with a walker by herself. She was able to get in and out of the shower by herself, but they typically wanted to have one in the family members there when she was attempting to shower. The family members live with the mother in the household. The patient sleeps in a lift chair and has a hard time getting up from low lying surfaces. REVIEW OF SYSTEMS: Did not offer any current complaints of shortness of breath or abdominal discomfort or chest pain. She does note increased shortness of breath with limited activity. She has chronic lower extremity pain complaints with her neuropathy and has a history of restless legs syndrome[place] [address] CONSULTATION Name: REGINA WINSTON Room #: [address] [place] [address] [place] ..#: [id number] Admission: 03/27/17 Attend Phys: Be Arellano MD Discharge: 04/02/17 Date of : 40 Report #: [id number] chronic low back complaints and has had intermittent injections by the pain clinic. PHYSICAL EXAMINATION: GENERAL: A 77-year-old obese female in no obvious distress. VITAL SIGNS: Last recorded temperature is 97.7, pulse 96, respirations are 22, blood pressure 145/84. NEUROLOGIC: The patient is alert, pleasant. She is a good historian. Facies are symmetric. She has functional range of motion of both upper extremities. Strength is grade 4- to 3+/5. DTRs are trace to 1. EXTREMITIES: Lower extremities, she does have some distal erythema of her lower extremities. There is a history of some chronic lymphedema. She has 1-2+ edema currently. Strength is grade 3+/5. DTRs are trace to 1. She is min assist with sit to stand. She could ambulate a few small steps with a front-wheeled walker with min assist. REVIEW OF SYSTEMS: The patient also has a history of hematuria. It is being monitored. ASSESSMENT: A 77-year-old female with the following problem list: 1. Idiopathic neuropathy. Denies a history of diabetes mellitus. 2. Medical complexity with generalized debilitation. 3. Premorbid proximal lower extremity weakness. She has been staying in a lift chair on an ongoing basis and sleeps in it. 4. Acute on chronic respiratory failure. 5. Lower respiratory tract infection. 6. Status asthmaticus. 7. Lower extremity edema with lymphedema. 8. Atrial fibrillation with rapid ventricular rate. 9. Interstitial edema. 10. Chronic lower back pain with radiculopathy. 11. Chronic obstructive pulmonary disease exacerbation. 12. Exogenous obesity. PLAN: The patient is currently in the Intensive Care Unit. We will be following along regarding her rehab and therapy needs. She certainly may benefit from a short acute in-hospital inpatient rehabilitation stay to further maximize her strength and endurance and overall functional independence prior to returning back to the home setting. Discussion was held with the patient and her two daughters. We will be glad to follow along with you regarding her rehab therapy needs as she further medically stabilizes. <ELECTRONICALLY SIGNED> By: Gerson Perkins MD 04/07/17 1414 1313 0113 Gerson Perkins MD /PMT
--- NOTE | ~2017-03-27 | HC ---
[facility] [place] [address] CONSULTATION Name: REGINA WINSTON Room #: 211-P ADM IN M.R.#: [id number] Admission: 03/27/17 Attend Phys: Be Arellano MD Discharge: Date of : 40 Report #: [id number] THIS REPORT FOR: //name// CC: Em Quintanilla MD DATE OF SERVICE: 03/27/2017 REFERRING PROVIDER: Dr. Arellano. REASON FOR CONSULTATION: Hypoxemic respiratory failure. CHIEF COMPLAINT: Shortness of breath. HISTORY OF PRESENT ILLNESS: Our group was asked to evaluate to the patient in consultation while hospitalized at [facility], seen in the Emergency Department in room 12. Discussed with Mily, Emergency Room PA and discussed with family who is at the bedside. The patient is a pleasant 77-year-old woman with a past medical history significant for persistent asthma typically recently controlled on p.r.n. levalbuterol nebulized treatments. Last weekend had been exposed to family during . There have been some cough, upper respiratory and lower respiratory congestion at that time. She started developing similar symptoms without fever, but with sweats over the last 4 days, called to our office and was prescribed Septra and Medrol Dosepak. The patient had not been improving, continues to cough, yellow and green sputum and increasing shortness of breath. The patient typically did not require supplemental oxygen, but is on 4 liters nasal cannula at this time and had hypoxemia noted on arterial blood gas. Of note, the patient was also in AFib with rapid ventricular response in the Emergency Department, has a history of chronic atrial fibrillation for which she is anticoagulated. Rate is now better controlled on diltiazem. She has received some IV Solu-Medrol and some aerosol treatments in the Emergency Department, some modest improvement. Family notes she looks somewhat better. ALLERGIES: INCLUDE AUGMENTIN, BIAXIN. PAST MEDICAL HISTORY: 1. History of persistent asthma. 2. Allergic rhinitis. 3. Atrial fibrillation. 4. History of benign neoplasm of the thyroid. 5. Coronary artery disease. 6. Gastroesophageal reflux disease. [facility] [address] [place] [address] CONSULTATION Name: REGINA WINSTON Room #: [address] [place] [address] [place] ..#: [id number] Admission: 03/27/17 Attend Phys: Be Arellano MD Discharge: Date of : 40 Report #: [id number] 7. Lower extremity lymphedema, improved according to family. 8. Peripheral vascular disease. 9. History of chronic lumbar spine pain as well as lower extremity neuropathy chronically treated recently with an injection 2 weeks ago as well as recent increase in her Duragesic packs strength to 25 mcg. SOCIAL HISTORY: The patient is a never smoker, no alcohol consumption. FAMILY HISTORY: Significant for coronary artery disease. REVIEW OF SYSTEMS: CONSTITUTIONAL: No fevers, but some sweats. ENT: Some upper respiratory congestion, but no rhinorrhea, dysphagia, oropharyngeal pain. CARDIOVASCULAR: No chest pains, a known history of AFib. GASTROINTESTINAL: No nausea, vomiting, diarrhea, constipation or abdominal pain. GENITOURINARY: No dysuria, no frequency or hematuria. INTEGUMENT: Denies any rash. MUSCULOSKELETAL: Lymphedema is improved. No new joint pains. NEUROLOGIC: History of chronic lumbar spine and lower extremity neuropathy. PHYSICAL EXAMINATION: VITAL SIGNS: Afebrile, pulse 108 and irregular, respiratory rate 26, blood pressure 148/88. GENERAL: This is an obese and elderly woman in moderate respiratory distress, somewhat somnolent. HEENT: Clear oropharynx. No oropharyngeal lesions, significant dental loss noted. No erythema. NECK: Supple, no lymphadenopathy, no stridor. LUNGS: Diminished, prolonged expiratory phase, use of some accessory muscles with extensive expiratory wheezes noted throughout. CARDIOVASCULAR: Heart was irregular and tachycardic. No murmurs could be appreciated. ABDOMEN: Soft, nontender, no masses, no hepatosplenomegaly. EXTREMITIES: Only trace edema. INTEGUMENT: No rash seen. LABORATORY DATA: White blood cell count 9.5, hemoglobin 15, hematocrit 47, platelet count is 209, 75% segmented neutrophils, eosinophil count minimal, INR 1.0. Sodium 138, potassium 4.4, chloride 103, bicarbonate 29, BUN 21, creatinine 1.0, glucose 164. Liver enzymes normal. ProBNP 1321. Arterial blood gas on room air revealed pH 7.36, pCO2 of 37, pO2 56, bicarbonate of 21, lactate 2.28. IMPRESSION: [facility] [address] [place] [address] CONSULTATION Name: MALA WINSTONREGINA Yves Room #: 211-P ADM IN M.R.#: [id number] Admission: 03/27/17 Attend Phys: Be Arellano MD Discharge: Date of : 40 Report #: [id number] 1. Status asthmaticus. 2. Acute hypoxemic respiratory failure. 3. Lower respiratory infection, likely early pneumonia, community acquired. 4. Atrial fibrillation with rapid ventricular response, rate controlled better at present. 5. History of diminished mobility due to chronic lumbar spine disease and neuropathy. SUGGESTIONS: 1. Systemic steroids. 2. Frequent bronchodilators. We will use levalbuterol, given her rapid ventricular response. 3. Levofloxacin. 4. Sputum culture. 5. Blood cultures. 6. Nasal swab for rapid influenza screen and respiratory viral panel. 7. Follow up chest x-ray in a.m. 8. Follow up arterial blood gas. 9. Given increased work of breathing, we will try BiPAP this evening, may take some lorazepam, sedation to tolerate further. 10. ICU care. 11. Hydration. 12. N.p.o. tonight. 13. Guaifenesin. 14. Consider adding additional airway clearance to include flutter valve and/or IPV if tolerated. 15. We will not evaluate for pulmonary embolism at this time given findings on exam and history of anticoagulation with Eliquis. 16. Additional recommendations to follow. Discussed at length with family and ICU staff. Total critical care time 40 minutes, not including any procedures. <ELECTRONICALLY SIGNED> By: Boni Randle MD 04/02/17 1057 1704 0855 Boni Randle MD /nt
[2017-03-27 15:19] LABS: ABG SAMPLE TYPE ARTERIAL; BE(vivo) -4.2 mmol/L (-2 to +3); HCO3 20.5 mmol/L (22.0-26.0); LACTATE 2.28 mmol/L (0.5-2.0); O2(CT) 19.6 mL/dL (15.0-23.0); O2Hb 88.1 % (92.0-98.0); PCO2 36.8 mmHg (35.0-45.0); PO2 55.5 mmHg (80.0-100.0); STICK SITE L.BRACHIAL; pH 7.364 (7.360-7.450); sO2 88.1 % (92.0-98.0); tCO2 21.6 mmol/L (24.0-30.0)
[2017-03-27 15:38] LABS: ABSOLUTE NEUTROPHILS 7.2 thou/uL (1.4-8.2); BASOPHILS 0.5 % (0.0-2.0); EOSINOPHILS 0.5 % (0.0-3.0); HEMATOCRIT 47.2 % (37.0-47.0); LYMPHOCYTES 11.5 % (24.0-44.0); MANUAL DIFF NO; MCH 27.1 pg (26.0-34.0); MCHC 31.7 g/dL (28.0-37.0); MCV 85.3 fL (80.0-100.0); MONOCYTES 11.9 % (1.0-8.0); PLATELET COUNT 209 thou/uL (150-400); POLYS 75.6 % (36.0-66.0); RBC 5.53 mil/uL (4.20-5.00); RDW 14.6 % (10.5-14.5); WBC 9.5 thou/uL (4.0-11.0)
[2017-03-27 15:42] LABS: ANION GAP 6 mmol/L (7-16); BUN 21 mg/dL (7-18); CALCIUM 9.2 mg/dL (8.5-10.1); CHLORIDE 103 mmol/L (98-107); CO2 29 mmol/L (21-32); GLUCOSE 164 mg/dL (74-106); POTASSIUM 4.4 mmol/L (3.5-5.1); SODIUM 138 mmol/L (136-145)
[2017-03-27 15:50] LABS: PROTIME 10.6 Seconds (9.3-11.4)
[2017-03-27 15:53] LABS: ALBUMIN 3.6 g/dL (3.4-5.0); ALKALINE PHOSPHATASE 105 U/L (46-116); SGOT 30 U/L (15-37); SGPT 25 U/L (30-65); TOTAL BILIRUBIN 0.5 mg/dL (<0.1-1.0); TOTAL PROTEIN 8.6 g/dL (6.4-8.2); TROPONIN-I < 0.04 ng/mL (<0.06)
[2017-03-27 21:27] LABS: ABG SAMPLE TYPE ARTERIAL; BE(vivo) -2.9 mmol/L (-2 to +3); HCO3 21.8 mmol/L (22.0-26.0); LACTATE 1.85 mmol/L (0.5-2.0); O2(CT) 19.8 mL/dL (15.0-23.0); O2Hb 96.3 % (92.0-98.0); PCO2 37.8 mmHg (35.0-45.0); PO2 93.2 mmHg (80.0-100.0); Pressure Support 5 cm H20; STICK SITE R.BRACHIAL; pH 7.378 (7.360-7.450); tCO2 22.9 mmol/L (24.0-30.0)
[2017-03-27 21:33] LABS: URINE BILIRUBIN NEGATIVE (Negative); URINE BLOOD 2+ (Negative); URINE COLOR YELLOW; URINE GLUCOSE-RANDOM* NEGATIVE (Negative); URINE KETONES NEGATIVE (Negative); URINE NITRITE NEGATIVE (Negative); URINE PROTEIN (DIPSTICK) TRACE (Negative); URINE SPECIFIC GRAVITY >= 1.030 (1.003-1.035); URINE UROBILINOGEN 0.2 E.U./dl (0.2-1.0)
[2017-03-27 21:43] LABS: CASTS None Seen /LPF (None Seen); SQUAMOUS 4-10 Moderate /LPF (0-3); URINE WBC 0-5 Rare /HPF (0-5)
[2017-03-27 21:44] LABS: CRYSTALS None Seen /LPF (None Seen)
[2017-03-28] VITALS (22 sets, daily range): BP systolic 97–160; BP diastolic 63–126
[2017-03-28 05:28] LABS: ABG SAMPLE TYPE ARTERIAL; BE(vivo) -1.4 mmol/L (-2 to +3); HCO3 25.4 mmol/L (22.0-26.0); LACTATE 1.87 mmol/L (0.5-2.0); O2(CT) 20.3 mL/dL (15.0-23.0); O2Hb 96.9 % (92.0-98.0); PCO2 50.8 mmHg (35.0-45.0); PO2 102.7 mmHg (80.0-100.0); STICK SITE R.BRACHIAL; sO2 97.2 % (92.0-98.0)
[2017-03-28 05:29] LABS: Pressure Support 6 cm H20
[2017-03-28 05:30] LABS: pH 7.317 (7.360-7.450)
[2017-03-28 06:48] LABS: HEMATOCRIT 42.8 % (37.0-47.0); HEMOGLOBIN 13.8 gm/dL (12.0-15.0); MCH 27.1 pg (26.0-34.0); MCHC 32.2 g/dL (28.0-37.0); MCV 84.4 fL (80.0-100.0); RBC 5.08 mil/uL (4.20-5.00); RDW 14.3 % (10.5-14.5); WBC 6.3 thou/uL (4.0-11.0)
[2017-03-28 06:57] LABS: CALCIUM 9.2 mg/dL (8.5-10.1); CREATININE 0.9 mg/dL (0.6-1.0); MAGNESIUM 2.3 mg/dL (1.8-2.4); POTASSIUM 4.4 mmol/L (3.5-5.1)
[2017-03-29] VITALS (24 sets, daily range): BP systolic 110–156; BP diastolic 55–113
[2017-03-29 04:42] LABS: HEMOGLOBIN 13.6 gm/dL (12.0-15.0); MCH 26.6 pg (26.0-34.0); MCV 85.6 fL (80.0-100.0); RBC 5.14 mil/uL (4.20-5.00); RDW 14.3 % (10.5-14.5); WBC 6.6 thou/uL (4.0-11.0)
[2017-03-29 04:57] LABS: ALBUMIN 3.2 g/dL (3.4-5.0); CALCIUM 9.2 mg/dL (8.5-10.1); CREATININE 1.1 mg/dL (0.6-1.0); POTASSIUM 4.2 mmol/L (3.5-5.1); TOTAL BILIRUBIN 0.3 mg/dL (<0.1-1.0); TOTAL PROTEIN 7.4 g/dL (6.4-8.2)
[2017-03-29 05:19] LABS: ABG SAMPLE TYPE ARTERIAL; BE(vivo) -2.1 mmol/L (-2 to +3); HCO3 23.5 mmol/L (22.0-26.0); LACTATE 3.14 mmol/L (0.5-2.0); O2(CT) 18.7 mL/dL (15.0-23.0); O2Hb 96.1 % (92.0-98.0); PCO2 43.4 mmHg (35.0-45.0); PO2 89.2 mmHg (80.0-100.0); pH 7.352 (7.360-7.450); sO2 96.4 % (92.0-98.0); tCO2 24.9 mmol/L (24.0-30.0)
[2017-03-29 05:20] LABS: ABG COMMENT BIPAP 14/ 6; Pressure Support 8 cm H20; STICK SITE R.BRACHIAL
[2017-03-30] VITALS (23 sets, daily range): BP systolic 113–152; BP diastolic 64–123
[2017-03-30 04:59] LABS: HEMOGLOBIN 12.6 gm/dL (12.0-15.0); MCH 26.8 pg (26.0-34.0); MCHC 31.5 g/dL (28.0-37.0); MCV 85.1 fL (80.0-100.0); RBC 4.71 mil/uL (4.20-5.00); RDW 14.5 % (10.5-14.5); WBC 10.8 thou/uL (4.0-11.0)
[2017-03-30 05:18] LABS: ABG SAMPLE TYPE ARTERIAL; BE(vivo) 0.5 mmol/L (-2 to +3); HCO3 25.7 mmol/L (22.0-26.0); LACTATE 1.82 mmol/L (0.5-2.0); O2(CT) 17.8 mL/dL (15.0-23.0); O2Hb 95.6 % (92.0-98.0); PCO2 43.8 mmHg (35.0-45.0); PO2 76.8 mmHg (80.0-100.0); pH 7.387 (7.360-7.450); sO2 95.2 % (92.0-98.0); tCO2 27.1 mmol/L (24.0-30.0)
[2017-03-30 05:18] LABS: ALBUMIN 2.9 g/dL (3.4-5.0); CALCIUM 9.3 mg/dL (8.5-10.1); CREATININE 0.8 mg/dL (0.6-1.0); POTASSIUM 4.5 mmol/L (3.5-5.1); TOTAL BILIRUBIN 0.3 mg/dL (<0.1-1.0); TOTAL PROTEIN 6.5 g/dL (6.4-8.2)
[2017-03-30 05:19] LABS: STICK SITE R.RADIAL
[2017-03-30 11:53] LABS: URINE BILIRUBIN NEGATIVE (Negative); URINE BLOOD 3+ (Negative); URINE GLUCOSE-RANDOM* NEGATIVE (Negative); URINE KETONES NEGATIVE (Negative); URINE LEUKOCYTES-REFLEX TRACE (Negative); URINE PROTEIN (DIPSTICK) 1+ (Negative); URINE UROBILINOGEN 0.2 E.U./dl (0.2-1.0)
[2017-03-30 11:54] LABS: URINE COLOR PINK
[2017-03-30 11:57] LABS: CASTS None Seen /LPF (None Seen); CRYSTALS None Seen /LPF (None Seen); SQUAMOUS 0-3 Few /LPF (0-3); URINE RBC >20 Many /HPF (0-2)
[2017-03-30 11:58] LABS: URINE WBC-REFLEX 6-15 Few /HPF (0-5)
[2017-03-31] VITALS (18 sets, daily range): BP systolic 92–148; BP diastolic 55–83
[2017-03-31 04:31] LABS: HEMATOCRIT 37.8 % (37.0-47.0); HEMOGLOBIN 12.1 gm/dL (12.0-15.0); MCH 27.1 pg (26.0-34.0); MCV 84.7 fL (80.0-100.0); RBC 4.47 mil/uL (4.20-5.00); RDW 14.3 % (10.5-14.5)
[2017-03-31 04:47] LABS: ALBUMIN 2.8 g/dL (3.4-5.0); CALCIUM 8.7 mg/dL (8.5-10.1); CREATININE 0.9 mg/dL (0.6-1.0); POTASSIUM 4.5 mmol/L (3.5-5.1); TOTAL BILIRUBIN 0.4 mg/dL (<0.1-1.0); TOTAL PROTEIN 6.4 g/dL (6.4-8.2)
[2017-03-31 09:12] LABS: ABG SAMPLE TYPE ARTERIAL; BE(vivo) 1.3 mmol/L (-2 to +3); HCO3 25.3 mmol/L (22.0-26.0); LACTATE 2.17 mmol/L (0.5-2.0); O2(CT) 18.4 mL/dL (15.0-23.0); O2Hb 95.6 % (92.0-98.0); PCO2 37.7 mmHg (35.0-45.0); PO2 77.7 mmHg (80.0-100.0); pH 7.444 (7.360-7.450); tCO2 26.4 mmol/L (24.0-30.0)
[2017-03-31 09:13] LABS: STICK SITE L.RADIAL
[2017-03-31 23:10] LABS: INFLUENZA B Negative (Negative); METAPNEUMOVIRUS Negative (Negative)
[2017-04-01 04:04] VITALS: BP 138/76
[2017-04-01 04:27] LABS: HEMATOCRIT 38.7 % (37.0-47.0); HEMOGLOBIN 12.6 gm/dL (12.0-15.0); MCH 27.1 pg (26.0-34.0); MCHC 32.6 g/dL (28.0-37.0); MCV 83.1 fL (80.0-100.0); RBC 4.66 mil/uL (4.20-5.00); WBC 10.8 thou/uL (4.0-11.0)
[2017-04-01 04:41] LABS: ALBUMIN 2.9 g/dL (3.4-5.0); CALCIUM 8.4 mg/dL (8.5-10.1); CREATININE 0.9 mg/dL (0.6-1.0); PHOSPHORUS 2.7 mg/dL (2.5-4.9)
[2017-04-01 07:10] VITALS: BP 138/67
[2017-04-01 11:41] VITALS: BP 122/59
[2017-04-01 15:42] VITALS: BP 122/56
[2017-04-01 19:51] VITALS: BP 134/57
[2017-04-02 03:10] VITALS: BP 152/69
[2017-04-02 07:15] VITALS: BP 139/61
[2017-04-02] MEDS ORDERED: ALBUTEROL2.5 MG/0.5 INH (08:05)
[2017-04-02] MEDS ORDERED: LEVALBUTER0.63 MG/3 INH (08:05)
[2017-04-02] MEDS ORDERED: CARDIZEM CD120 MG PO (08:06)
[2017-04-02] MEDS ORDERED: LASIX 40 MG TAB40 M1 PO (08:06)
[2017-04-02] MEDS ORDERED: SOLU-MEDRO40 MG/1 M2 IV PUSH (08:07)
[2017-04-02] MEDS ORDERED: HUMALOG100 UNIT/1 SUBQ (08:07)
[2017-04-02] MEDS ORDERED: PULMICORT0.5 MG/21 INH (08:07)
[2017-04-02 08:08] LABS: GLOMERULR BASEM MEMBRN AB 3 units (0-20)
[2017-04-02 08:20] VITALS: BP 139/61
[2017-04-02 09:09] LABS: ANTI-DNA SCREEN <1 IU/mL (0-9); ANTI-RNP <0.2 AI (0.0-0.9)
[2017-04-02 16:07] LABS: c-ANCA <1:20 titer (Neg:<1:20); p-ANCA <1:20 titer (Neg:<1:20)
== END 2017-04-02 11:05 | DRG 871 ==
LOC: ER 15:07 → ICU 16:30 → EROBS 16:30 → ICU 18:12 → 2N 03-31 16:20
PROVIDERS: Hospitalist; Internal Medicine Pulmonary Disease; Nurse Practitioner Family
PROC: 5A09557 Assistance with Respiratory Ventilation, Greater than 96 Consecutive Hours, Continuous Positive Airway Pressure (ICD-10-PCS; principal; 2017-03-27)
PROC: B24BZZ4 Ultrasonography of Heart with Aorta, Transesophageal (ICD-10-PCS; 2017-03-28)
DX: A41.9 Sepsis, unspecified organism (principal); J96.21 Acute and chronic respiratory failure with hypoxia; J18.9 Pneumonia, unspecified organism; J96.22 Acute and chronic respiratory failure with hypercapnia; J44.1 Chronic obstructive pulmonary disease with (acute) exacerbation; J45.902 Unspecified asthma with status asthmaticus; I48.92 Unspecified atrial flutter; Z68.42 Body mass index [BMI] 45.0-49.9, adult; E87.2 Acidosis; J44.0 Chronic obstructive pulmonary disease with (acute) lower respiratory infection; I48.91 Unspecified atrial fibrillation; I50.9 Heart failure, unspecified; K21.9 Gastro-esophageal reflux disease without esophagitis; I73.9 Peripheral vascular disease, unspecified; H35.30 Unspecified macular degeneration; B97.4 Respiratory syncytial virus as the cause of diseases classified elsewhere; Z96.643 Presence of artificial hip joint, bilateral; G60.9 Hereditary and idiopathic neuropathy, unspecified; G89.4 Chronic pain syndrome; M54.16 Radiculopathy, lumbar region; E66.01 Morbid (severe) obesity due to excess calories; Z98.42 Cataract extraction status, left eye; Z98.41 Cataract extraction status, right eye; Z85.038 Personal history of other malignant neoplasm of large intestine; Z90.49 Acquired absence of other specified parts of digestive tract; Z79.01 Long term (current) use of anticoagulants; Z79.51 Long term (current) use of inhaled steroids; Z79.899 Other long term (current) drug therapy; Z88.1 Allergy status to other antibiotic agents; Z88.8 Allergy status to other drugs, medicaments and biological substances; Z28.21 Immunization not carried out because of patient refusal; Z82.49 Family history of ischemic heart disease and other diseases of the circulatory system; Z82.5 Family history of asthma and other chronic lower respiratory diseases; Z83.3 Family history of diabetes mellitus; Z80.8 Family history of malignant neoplasm of other organs or systems
CPT/HCPCS: 10078; 10081

== ENCOUNTER 2017-04-02 07:59 | Inpatient (IN) | payer OTHER, BC ==
[~2017-04-02] VITALS: Ht 162.6 cm; Wt 123.0 kg
--- NOTE | ~2017-04-02 | HC ---
[facility] [place] [address] CONSULTATION Name: REGINA WINSTON Room #: 501-A [facility] IN ..#: [id number] Admission: 04/02/17 Attend Phys: Gerson Perkins MD Discharge: Date of : 40 Report #: [id number] THIS REPORT FOR: //name// CC: Gerson Elenanifer Socorro DATE OF SERVICE: 04/04/2017 NEUROBEHAVIORAL STATUS EXAMINATION AGE: 77. ATTENDING PHYSICIAN: Gerson Perkins MD INDUSTRIAL SWEEPER CLEANER: Kye Childers, PhD CLINICAL PRESENTATION: The patient is a 77-year-old female admitted to the [facility] Rehabilitation Unit for a comprehensive inpatient rehabilitation program to improve functional mobility, activities of daily living and self-care and mental status secondary to deficits from an idiopathic neuropathy. Her diagnoses on admission include medical complexity with generalized debilitation, premorbid proximal lower extremity weakness, acute on chronic respiratory failure, lower respiratory tract infection, status asthmaticus, lower extremity edema with lymphedema, atrial fibrillation with rapid ventricular rate, interstitial edema, chronic low back pain with radiculopathy, COPD exacerbation and exogenous obesity. A complete description of her medical condition and history can be found in her medical record. Neuropsychological consultation was requested to provide assistance in the assessment of cognitive and emotional status and to provide recommendations and services. Prior to this most recent medical event, she was living with the assistance of her son and daughter in her home. The patient has 10 biological and one adopted child. 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 She is a high school graduate with 4 years of college. TECHNIQUES UTILIZED: Clinical interview, review of medical records, staff consultation and behavioral observation, family interview -- son and daughter, mini mental status exam 2 standard version and clock drawing. EXAMINATION FINDINGS: The patient was alert and cooperative with the assessment. She accurately described events surrounding her admission. There is no evidence of aphasia. Her thoughts are logical and goal oriented. She does not report auditory or visual hallucinations. She reports increased anxiety as a result of her medical condition and current fatigue. [facility] [address] [place] [address] CONSULTATION Name: MALA WINSTONREGINA C Room #: 501-A [facility] IN [facility].#: [id number] Admission: 04/02/17 Attend Phys: Gerson Perkins MD Discharge: Date of : 40 Report #: [id number] difficulty with memory and word finding are described. Her family is very attentive and provide assistance with necessary activities of daily living. Her performance on the MMSE 2 brief version is within normal limits with a raw score of 14 of 16. She is 3/3 for initial registration, 5/5 for orientation to time, 5/[address] and 1/3 for immediate recall of 3 items after a brief time delay and distraction. Her performance improved on the MMSE 2 standard version with a raw score of 28 of 30. She was 5/5 for serial sevens, 2/2 for naming, 1/1 for repetition, 3/3 for auditory comprehension. She could read and follow single command, write a sentence and copy a simple geometric design. The patient had difficulty with clock drawing. She was able to place the numbers on the clock, but visual spatial disorganization interfered with successful placement of the hands at a specific time. DIAGNOSTIC IMPRESSION: 1. 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 2. Adjustment disorder with anxious mood. RECOMMENDATIONS: The patient has a supportive family and very structured home environment. She describes difficulty with sleep, which will likely improve if increased activity can be maintained during the day. She is described as sleeping more during the day with remaining awake at night. The use of relaxation techniques will be of benefit to reduce anxiety. Breathing strategies along with guided attention should help manage anxiety more consistently. Practicing relaxation strategy during the day as well as developing an active and structured schedule will be of benefit to assist overall level of functioning. Thank you very much for allowing me to provide the consultation on this patient. <ELECTRONICALLY SIGNED> By: Kye Childers, PhD 04/11/17 1500 1316 17 Kye Childers, PhD /nt
--- NOTE | ~2017-04-02 | H ---
[facility] [place] [address] HISTORY AND PHYSICAL Name: REGINA WINSTON Room #: 514-P ADM IN M.R.#: [id number] Admission: 04/02/17 Attend Phys: Gerson Perkins MD Discharge: Date of : 40 Report #: [id number] THIS REPORT FOR: //name// CC: Gerson Quintanilla DATE OF SERVICE: 04/02/2017 HISTORY AND PHYSICAL/POST-ADMISSION PHYSICIAN EVALUATION HISTORY OF PRESENT ILLNESS: This is a 77-year-old white female who was originally admitted to [facility] with increased shortness of breath, was noted to have acute on chronic respiratory failure. She was diagnosed with a lower respiratory tract infection with acute hypercapnic with hypoxemic respiratory failure. She was also noted to have some interstitial edema with mild congestive heart failure. She was in the intensive care unit. She has history of atrial fibrillation with rapid ventricular rate. She was on Cardizem for rate control with Eliquis for anticoagulation. She has a premorbid history of chronic lower back pain with intermittent corticosteroid steroid injections with radiculopathy and neuropathy. She also has a noted idiopathic neuropathy per her history. Infectious Disease is involved with noted respiratory syncytial virus. Her respiratory failure was thought due to asthma, CHF and RSV. She has been diuresed with tapering of steroids. She has been admitted now for acute in-hospital inpatient rehabilitation. PAST MEDICAL HISTORY: Colon cancer with resection in 2005, right hip replacement 2007, left hip replacement, cholecystectomy, ablation of heart x 3 for atrial fibrillation, CHF, GERD, lymphedema, asthma with COPD, sinusitis, atrial fibrillation with flutter, macular degeneration, lumbar spinal stenosis with peripheral neuropathy, pancreatitis and septic arthritis. She also has exogenous obesity. MEDICATIONS: Please see the full medication listing. Each of these was individually reconciled and includes herbals, vitamins, and supplements. ALLERGIES: CLARITHROMYCIN AND CLAVULANIC ACID. HABITS: No history of tobacco or alcohol abuse. SOCIAL HISTORY: Lives in a house with her daughter and son. The daughter is a nurse and works part-time out of the home. Typically, the daughter or the son will be with the patient. She was premorbidly able to ambulate short distances with a walker by herself. She was able to get in and out of the shower by herself, but they typically wanted to have at least one family member there when she was attempting shower. Family members live with the mother in the household. The patient sleeps in a lift chair and has a hard time getting up [address] [address] HISTORY AND PHYSICAL Name: REGINA WINSTON Room #: 514-P [facility] IN ..#: [id number] Admission: 04/02/17 Attend Phys: Gerson Perkins MD Discharge: Date of : 40 Report #: [id number] from a low lying surfaces. REVIEW OF SYSTEMS: No current complaints of chest pain or shortness of breath. She does note increased shortness of breath with activity. She has a prior history of restless legs syndrome. She has the chronic back complaints with intermittent injections as noted above. No focal extremity pain complaints at the current time. PHYSICAL EXAMINATION: GENERAL: A 77-year-old obese white female, in no obvious distress. VITAL SIGNS: Last recorded temperature 98.8, pulse 95, respirations 20, blood pressure 136/71. NEUROLOGIC: The patient is pleasant. She is alert. Facies are symmetric. EXTREMITIES: She has functional range of motion of both upper extremities with strength grade 4- to 3+/5. DTRs are trace to 1. In her lower extremities, she does have some distal erythema of her lower extremities. She has the noted chronic lymphedema. She does have 1-2+ pitting edema with strength grade 3+/5. DTRs are trace to 1. CHEST: Sounded clear to auscultation. CARDIOVASCULAR: Regular rate and rhythm. ABDOMEN: Obese, bowel sounds positive, nontender. GENITOURINARY AND RECTAL: Deferred. Functionally, she is max assist with transfers with gait, mod assist 15 feet with a front-wheeled walker. She does have decreased distal sensation of both lower extremities from the knees distal. Strength is a grade 3+/5, distally. ASSESSMENT: A 77-year-old female with the following problem list: 1. Idiopathic neuropathy. Denies history of diabetes mellitus. 2. Medical complexity with generalized debilitation. 3. Premorbid proximal lower extremity weakness. She had been staying in a lift chair premorbidly. 4. Acute on chronic respiratory failure. 5. Lower respiratory tract infection. 6. Status asthmaticus. 7. Lower extremity edema with lymphedema. 8. Atrial fibrillation with rapid ventricular rate. 9. Interstitial edema. 10. Chronic low back pain with radiculopathy. 11. Chronic obstructive pulmonary disease exacerbation. 12: Exogenous obesity. PLAN: The patient is admitted for acute in-hospital inpatient rehabilitation. From a postadmission physician evaluation perspective, there are no relevant changes since the preadmission screening. Please see the above review of prior and current medical and functional conditions and comorbidities. Please see the patient's prior and current functional status. As far as risk of complication, [address] [address] HISTORY AND PHYSICAL Name: REGINA WINSTON Room #: 514-P [facility] IN [facility]#: [id number] Admission: 04/02/17 Attend Phys: Gerson Perkins MD Discharge: Date of : 40 Report #: [id number] she does have multiple medical comorbidities as noted above. Initial plan of care involves the interdisciplinary acute inpatient rehabilitation program with goal of maximizing the patient's functional independence, so she can hopefully return back to the prior living situation. Measurable functional goals would be for her to become independent with basic transfers and mobility issues with the walker. Goal is also to be independent with basic ADLs. We need to get her to the functional standpoint where she can return back home with family. Prognosis is reasonably good with estimated length of stay probably at least 10 days to 2 weeks and possibly longer depending on progress. Potential barriers would include her multiple medical comorbidities and decreased functional status. The patient meets diagnostic criteria for an acute in-hospital inpatient rehabilitation stay. She meets medical necessity criteria and she does have the multiple medical comorbidities as noted above and we will have the multiple client care consultant physicians continue to follow while she is on rehabilitation. She does have the tolerance for an acute rehab therapy program and has appropriate discharge goals back to the home setting. <ELECTRONICALLY SIGNED> By: Gerson Perkins MD 04/07/17 1414 0904 1041 Gerson Perkins MD /[facility]
--- NOTE | ~2017-04-02 | PLAN ---
[facility] [place] [address] REHAB UNIT PLAN OF CARE Name: REGINA WINSTON Room #: 514-P ADM IN M.R.#: [id number] Admission: 04/02/17 Attend Phys: Gerson Perkins MD Discharge: Date of : 40 Report #: [id number] THIS REPORT FOR: //name// CC: Gerson Quintanilla DATE OF SERVICE: 04/04/2017 The overall plan of care is based on the preadmission screen, post-admission physician evaluation and information garnered from therapy assessments. 1. Estimated length of stay is probably 10 days to 2 weeks. 2. Medical prognosis is reasonably good. 3. Anticipated interventions includes the interdisciplinary acute inpatient rehabilitation program with the goal of maximizing the patient's functional independence so that she can return back to the home setting. She will have PT and OT working with her rehab nursing assisting regarding medication management, skin care prophylaxis, bowel and bladder changes and nursing education. 4. Anticipated functional outcomes would be for the patient to achieve her prior functional level when she could ambulate short distances with a walker by herself and was able to do most of her basic ADLs. 5. Discharge destination would be back home with daughter and son. 6. Expected therapy by discipline of the PT and OT 1-1/2 hours per day each five days a week throughout the duration of the acute inpatient rehabilitation stay. <ELECTRONICALLY SIGNED> By: Gerson Perkins MD 04/07/17 1414 0928 [id number] Gerson Perkins MD /NNAMDI
[2017-04-02] MEDS ORDERED: LEVALBUTER0.63 MG/3 INH (08:05)
[2017-04-02] MEDS ORDERED: ALBUTEROL2.5 MG/0.5 INH (08:05)
[2017-04-02] MEDS ORDERED: CARDIZEM CD120 MG PO (08:06)
[2017-04-02] MEDS ORDERED: LASIX 40 MG TAB40 M1 PO (08:06)
[2017-04-02] MEDS ORDERED: SOLU-MEDRO40 MG/1 M2 IV PUSH (08:07)
[2017-04-02] MEDS ORDERED: PULMICORT0.5 MG/21 INH (08:07)
[2017-04-02] MEDS ORDERED: HUMALOG100 UNIT/1 SUBQ (08:07)
[2017-04-02 11:25] VITALS: BP 131/84
[2017-04-02 19:58] VITALS: BP 136/71
[2017-04-03 03:59] LABS: HEMATOCRIT 39.3 % (37.0-47.0); HEMOGLOBIN 12.8 gm/dL (12.0-15.0); MCH 27.1 pg (26.0-34.0); MCHC 32.7 g/dL (28.0-37.0); MCV 82.8 fL (80.0-100.0); RBC 4.74 mil/uL (4.20-5.00); RDW 13.9 % (10.5-14.5); WBC 15.6 thou/uL (4.0-11.0)
[2017-04-03 04:04] LABS: ALBUMIN 2.7 g/dL (3.4-5.0); CALCIUM 8.3 mg/dL (8.5-10.1); CREATININE 0.9 mg/dL (0.6-1.0); PHOSPHORUS 3.2 mg/dL (2.5-4.9); POTASSIUM 4.2 mmol/L (3.5-5.1)
[2017-04-03 09:13] VITALS: BP 132/74
[2017-04-03 19:50] VITALS: BP 137/64
[2017-04-04 04:03] LABS: HEMATOCRIT 41.3 % (37.0-47.0); HEMOGLOBIN 13.3 gm/dL (12.0-15.0); MCH 26.7 pg (26.0-34.0); MCHC 32.3 g/dL (28.0-37.0); MCV 82.8 fL (80.0-100.0); PLATELET COUNT 223 thou/uL (150-400); RBC 4.98 mil/uL (4.20-5.00); WBC 16.6 thou/uL (4.0-11.0)
[2017-04-04 04:06] LABS: MANUAL DIFF YES
[2017-04-04 04:20] LABS: CALCIUM 8.6 mg/dL (8.5-10.1); CREATININE 0.8 mg/dL (0.6-1.0); MAGNESIUM 2.2 mg/dL (1.8-2.4)
[2017-04-04 05:35] LABS: ABSOLUTE NEUTROPHILS 14.8 thou/uL (1.4-8.2); TOTAL CELL COUNT 100
[2017-04-04 07:45] VITALS: BP 135/76
[2017-04-04 21:15] VITALS: BP 134/67
[2017-04-05 08:00] VITALS: BP 144/71
[2017-04-05 20:00] VITALS: BP 152/63
[2017-04-06 04:03] LABS: CALCIUM 8.4 mg/dL (8.5-10.1); CREATININE 0.8 mg/dL (0.6-1.0); POTASSIUM 4.6 mmol/L (3.5-5.1)
[2017-04-06 08:00] VITALS: BP 141/62
[2017-04-06 13:38] LABS: HEMATOCRIT 41.8 % (37.0-47.0); HEMOGLOBIN 13.3 gm/dL (12.0-15.0); MCHC 31.8 g/dL (28.0-37.0); RBC 4.92 mil/uL (4.20-5.00); RDW 14.2 % (10.5-14.5); WBC 24.8 thou/uL (4.0-11.0)
[2017-04-06 19:32] VITALS: BP 157/81
[2017-04-07 06:45] VITALS: BP 143/64
[2017-04-07 09:15] LABS: HSV PCR SOURCE PHARYNX
[2017-04-07 19:29] LABS: HEMATOCRIT 41.7 % (37.0-47.0); HEMOGLOBIN 13.4 gm/dL (12.0-15.0); MANUAL DIFF YES; MCH 26.8 pg (26.0-34.0); MCHC 32.1 g/dL (28.0-37.0); MCV 83.3 fL (80.0-100.0); PLATELET COUNT 199 thou/uL (150-400); RBC 5.01 mil/uL (4.20-5.00); RDW 14.2 % (10.5-14.5)
[2017-04-07 19:53] VITALS: BP 117/65
[2017-04-07 20:48] LABS: ABSOLUTE NEUTROPHILS 17.1 thou/uL (1.4-8.2); ANISOCYTOSIS SLIGHT; MICROCYTES SLIGHT; TOTAL CELL COUNT 100
[2017-04-08 06:12] LABS: HEMATOCRIT 41.1 % (37.0-47.0); HEMOGLOBIN 13.2 gm/dL (12.0-15.0); MCH 26.6 pg (26.0-34.0); MCHC 32.1 g/dL (28.0-37.0); MCV 82.9 fL (80.0-100.0); RBC 4.96 mil/uL (4.20-5.00); RDW 14.4 % (10.5-14.5); WBC 20.2 thou/uL (4.0-11.0)
[2017-04-08 06:21] LABS: CALCIUM 8.6 mg/dL (8.5-10.1); CREATININE 0.9 mg/dL (0.6-1.0); MAGNESIUM 2.4 mg/dL (1.8-2.4); POTASSIUM 4.3 mmol/L (3.5-5.1)
[2017-04-08 07:45] VITALS: BP 148/74
[2017-04-08 21:10] VITALS: BP 148/54
[2017-04-09 08:15] VITALS: BP 145/57
[2017-04-09 20:33] VITALS: BP 132/51
[2017-04-10 06:28] LABS: ABSOLUTE NEUTROPHILS 10.2 thou/uL (1.4-8.2); BASOPHILS 0.1 % (0.0-2.0); EOSINOPHILS 0.5 % (0.0-3.0); HEMATOCRIT 37.6 % (37.0-47.0); HEMOGLOBIN 12.3 gm/dL (12.0-15.0); LYMPHOCYTES 12.5 % (24.0-44.0); MCH 27.3 pg (26.0-34.0); MCHC 32.8 g/dL (28.0-37.0); MCV 83.4 fL (80.0-100.0); MONOCYTES 9.2 % (1.0-8.0); PLATELET COUNT 145 thou/uL (150-400); POLYS 77.7 % (36.0-66.0); RDW 14.5 % (10.5-14.5); WBC 13.2 thou/uL (4.0-11.0)
[2017-04-10 06:35] LABS: MANUAL DIFF NO
[2017-04-10 07:38] VITALS: BP 132/56
[2017-04-10 20:32] VITALS: BP 150/59
[2017-04-11 07:52] VITALS: BP 142/55
[2017-04-11 20:07] VITALS: BP 128/55
[2017-04-12 08:50] VITALS: BP 172/63
[2017-04-12 15:58] LABS: CALCIUM 8.4 mg/dL (8.5-10.1); CREATININE 0.9 mg/dL (0.6-1.0); MAGNESIUM 2.2 mg/dL (1.8-2.4); POTASSIUM 4.4 mmol/L (3.5-5.1)
[2017-04-12 19:59] VITALS: BP 129/57
[2017-04-13 06:32] LABS: ABSOLUTE NEUTROPHILS 11.2 thou/uL (1.4-8.2); BASOPHILS 0.6 % (0.0-2.0); HEMATOCRIT 36.6 % (37.0-47.0); HEMOGLOBIN 11.9 gm/dL (12.0-15.0); LYMPHOCYTES 12.8 % (24.0-44.0); MCH 27.5 pg (26.0-34.0); MCHC 32.6 g/dL (28.0-37.0); MCV 84.2 fL (80.0-100.0); MONOCYTES 6.5 % (1.0-8.0); PLATELET COUNT 130 thou/uL (150-400); POLYS 79.1 % (36.0-66.0); RBC 4.35 mil/uL (4.20-5.00); RDW 14.6 % (10.5-14.5); WBC 14.2 thou/uL (4.0-11.0)
[2017-04-13 06:39] LABS: MANUAL DIFF NO
[2017-04-13 08:15] VITALS: BP 121/57
[2017-04-13 19:26] VITALS: BP 122/61
[2017-04-13 21:06] VITALS: BP 144/48
[2017-04-14 08:21] VITALS: BP 159/80
[2017-04-14 19:33] VITALS: BP 143/72
[2017-04-15 08:00] VITALS: BP 123/58
[2017-04-15 19:58] VITALS: BP 135/58
[2017-04-16 07:30] VITALS: BP 119/56
[2017-04-16] MEDS ORDERED: PULMICORT0.5 MG/21 INH (11:39)
[2017-04-16] MEDS ORDERED: CYMBALTA60 MG PO (11:39)
[2017-04-16] MEDS ORDERED: PANTOPRAZOLE SO40 M1 PO (11:39)
[2017-04-16] MEDS ORDERED: MUCINEX600 MG PO (11:39)
[2017-04-16] MEDS ORDERED: ALDACTONE25 MG PO (11:39)
[2017-04-16] MEDS ORDERED: ALBUTEROL2.5 MG/0.5 INH (11:39)
[2017-04-16] MEDS ORDERED: CARDIZEM CD120 MG PO (11:39)
[2017-04-16] MEDS ORDERED: LASIX 40 MG TAB40 M1 PO (11:39)
[2017-04-16] MEDS ORDERED: NEURONTIN600 MG PO (11:39)
[2017-04-16] MEDS ORDERED: HYDROCORTISONE120 M1 TOP (11:39)
[2017-04-16] MEDS ORDERED: CLOTRIMAZOLE10 MG PO (11:39)
[2017-04-16] MEDS ORDERED: ELIQUIS5 MG PO (11:39)
[2017-04-16 16:15] VITALS: BP 119/56
[2017-04-16 16:16] VITALS: BP 119/56
[2017-04-16 20:22] VITALS: BP 144/72
[2017-04-17 06:14] LABS: ABSOLUTE NEUTROPHILS 6.2 thou/uL (1.4-8.2); BASOPHILS 0.6 % (0.0-2.0); EOSINOPHILS 2.6 % (0.0-3.0); HEMOGLOBIN 11.8 gm/dL (12.0-15.0); LYMPHOCYTES 15.4 % (24.0-44.0); MCH 27.8 pg (26.0-34.0); MCHC 32.7 g/dL (28.0-37.0); MCV 85.1 fL (80.0-100.0); PLATELET COUNT 105 thou/uL (150-400); POLYS 76.4 % (36.0-66.0); RBC 4.23 mil/uL (4.20-5.00); RDW 15.1 % (10.5-14.5); WBC 8.1 thou/uL (4.0-11.0)
[2017-04-17 06:27] LABS: MANUAL DIFF NO
[2017-04-17 07:00] VITALS: BP 135/67
[2017-04-17 09:51] LABS: CALCIUM 8.5 mg/dL (8.5-10.1); MAGNESIUM 2.2 mg/dL (1.8-2.4)
[2017-04-17] MEDS ORDERED: LEVALBUTER0.63 MG/3 INH (11:27)
[2017-04-17 13:51] VITALS: BP 119/56
[2017-04-17] MEDS ORDERED: PREDNISONE 5 MG5 MG PO (16:17)
== END 2017-04-17 13:53 | disposition home health service (06) | DRG 73 ==
LOC: ENTRNSPT 04-17 13:27 → EDTRNSPTSTS 04-17 13:29 → CMPTRNSPT 04-17 13:47
PROVIDERS: Internal Medicine Pulmonary Disease; Nurse Practitioner; Physical Medicine & Rehabilitation; Specialist
PROC: 5A09557 Assistance with Respiratory Ventilation, Greater than 96 Consecutive Hours, Continuous Positive Airway Pressure (ICD-10-PCS; principal; 2017-04-02)
DX: G60.9 Hereditary and idiopathic neuropathy, unspecified (principal); J96.22 Acute and chronic respiratory failure with hypercapnia; J96.21 Acute and chronic respiratory failure with hypoxia; J12.1 Respiratory syncytial virus pneumonia; I48.92 Unspecified atrial flutter; J45.902 Unspecified asthma with status asthmaticus; J44.1 Chronic obstructive pulmonary disease with (acute) exacerbation; J44.0 Chronic obstructive pulmonary disease with (acute) lower respiratory infection; Z68.42 Body mass index [BMI] 45.0-49.9, adult; I50.9 Heart failure, unspecified; M54.5 Low back pain; I48.91 Unspecified atrial fibrillation; G89.29 Other chronic pain; Z96.643 Presence of artificial hip joint, bilateral; H35.30 Unspecified macular degeneration; K21.9 Gastro-esophageal reflux disease without esophagitis; M48.061 Spinal stenosis, lumbar region without neurogenic claudication; E66.09 Other obesity due to excess calories; G31.84 Mild cognitive impairment of uncertain or unknown etiology; F43.20 Adjustment disorder, unspecified; R31.9 Hematuria, unspecified; R26.9 Unspecified abnormalities of gait and mobility; N18.9 Chronic kidney disease, unspecified; I89.0 Lymphedema, not elsewhere classified; R53.81 Other malaise; B37.9 Candidiasis, unspecified; L53.9 Erythematous condition, unspecified; K12.30 Oral mucositis (ulcerative), unspecified; T38.0X5A Adverse effect of glucocorticoids and synthetic analogues, initial encounter; D69.59 Other secondary thrombocytopenia; Z85.038 Personal history of other malignant neoplasm of large intestine; Y92.89 Other specified places as the place of occurrence of the external cause; Z90.49 Acquired absence of other specified parts of digestive tract; Z88.1 Allergy status to other antibiotic agents; Z88.8 Allergy status to other drugs, medicaments and biological substances; Z79.899 Other long term (current) drug therapy
CPT/HCPCS: 10112

== ENCOUNTER → 2017-05-25 | Outpatient (CLI) | payer OTHER, BC ==
[~2017-05-25] VITALS: Ht 162.6 cm; Wt 124.7 kg
[~2017-05-25] MED LIST changes: +ALBUTEROL2.5 MG/0.5 INH; +CARDIZEM CD120 MG PO; +CEFDINIR300 MG PO; +CIPRO500 MG PO; +CLOTRIMAZOLE10 MG PO; +FENTANYL1 EAC1 TRANSDERM; +FENTANYL1 EAC3 TRANSDERM; +FENTANYL1 EAC4 TRANSDERM; +HUMALOG100 UNIT/1 SUBQ; +HYDROCODONE-AP1 EA11 PO; +HYDROCORTISO28.35 G1 TOP; +HYDROCORTISONE120 M1 TOP; +LASIX 40 MG TAB40 M1 PO; +LEVALBUTER0.63 MG/3 INH; +MACRODANTIN50 MG PO; +MIRAPEX0.25 MG PO; +MUCINEX600 MG PO; +PREDNISONE 5 MG5 M1 PO; +PREDNISONE 5 MG5 MG PO; +PROTONIX40 M1 PO; +PULMICORT0.5 MG/21 INH; +SOLU-MEDRO40 MG/1 M2 IV PUSH; +SPIRONOLACTONE25 M1 PO
--- NOTE | ~2017-05-25 | HPC ---
[facility] [place] [address] [place] [address] PAIN MANAGEMENT CONSULTATION Name: REGINA WINSTON Room #: REG LOUIS Marshall#: [id number] Admission: 05/25/17 Attend Phys: Rory Xiong DO Discharge: Date of : 40 Report #: [id number] THIS REPORT FOR: //name// CC: Sammie Xiong "Jose Winston is a 77-year-old female. HISTORY OF PRESENT ILLNESS: The patient is a 77-year-old female well known to the pain clinic, typically treated for lumbar radiculopathy secondary to spinal stenosis, axial back pain, neuropathic pain component requiring high risk complex medication management. Last seen in the pain clinic on 03/09/2017. Continued on Duragesic 25 mcg q. 72 hours. We continued hydrocodone 7.5/325. I had offered her prescription for 325 and talked about increasing to 37 mcg on Duragesic patch. She was having increasing pain at that time. She returns to the pain clinic today. She is actually doing a little bit better. I had given her an L4-L5 injection at her last visit. She had been quite sick in the interval, was admitted to the hospital on 04/02 through 04/17/2017 with significant pneumonia, RSV and component of congestive failure. She has been doing physical therapy and to her credit has gotten remarkably better. She is currently weaning prednisone from higher dose for the steroid issue now down to 5 mg a day. She is using a walker for balance, typically is using a wheelchair when we see her. She has some chronic lower extremity lymphedema. She returns to the pain clinic today. She is doing reasonable on current medications, we talked about continuing Duragesic 25 mcg q. 72 hours and hydrocodone 7.5/325. I have taken the liberty of writing for 2 months of current medication. If, however, she starts to struggle with physical therapy as she is weaning her steroids, I will consider leaving a prescription for hydrocodone 10/325 one tablet up to 4 times a day for a family member to belt picker. The patient's ongoing radicular pain, bilateral low back and legs with ongoing weakness again to her credit she is working hard with physical therapy and does seem to be overall getting improvement. She does have positive straight leg raise bilaterally. Morbidly obese with a BMI of over 45 kilograms per meter squared. She has been off her Eliquis for 3 days. We reviewed the fact that opiate medications are being used to provide analgesia adequate to support activities of daily living, not attempting to achieve a specific pain score on the 0-10 Visual Analog Scale. The current opiate medications are providing sufficient analgesia to allow the patient to participate in activities of daily living. The patient is not exhibiting any aberrant behavior suggestive of drug diversion. The patient is not having any [address] [address] PAIN MANAGEMENT CONSULTATION Name: REGINA WINSTON [facility] [id number] Admission: 05/25/17 Attend Phys: Rory Xiong DO Discharge: Date of : 40 Report #: [id number] adverse reactions to medications. The patient is not suffering from daytime somnolence or mental acuity changes. The patient is managing opiate-induced constipation with appropriate vstn-iyh-zrosnlh agents and dietary considerations. The patient was counseled on concern for caution with operating a motor vehicle while using opiate medications. A physical exam was performed and the patient's functional status was evaluated. All patients with back pain were advised against the bed rest greater than 4 days and were advised to return to normal activities. Pain score assessment was noted and the treatment plan was reviewed with the patient. All current medications, both prescribed and OTC were reviewed and reconciled on the electronic medical record. Tobacco screening was accomplished and smoking cessation was advised when indicated. BMI was noted and diet/exercise modification was recommended for all patients following outside normal parameters. I reviewed with the patient today their responsibilities to safeguard prescription medications, reviewed their responsibility to utilize medications only as prescribed by the physician. They are to seek and receive pain medications only from 1 physician group ( [facility]). They are to use 1 pharmacy and keep the clinic informed if they change pharmacies. Their responsibilities include making followup visits in a timely fashion and to avoid abrupt discontinuation of medication usage. Their responsibilities further include bringing their medications (bottles from the pharmacy with residual pills) to the visit for possible confirmation of pill counts and the patient understands it is their responsibility to submit to random drug screens to ensure both that the medications prescribed are present, and that no other controlled substances are present. All prescriptions provided today were generated electronically. ASSESSMENT: Lumbar radiculopathy secondary to spinal stenosis, axial back pain, neuropathic pain requiring high risk complex medication management. RECOMMENDATIONS: Renew Duragesic 25 mcg q. 72 hours and hydrocodone 7.5/325 up to 4 a day. As noted in the body of the dictation, if the patient starts to have increasing pain with increasing physical therapy and weaning her p.o. prednisone, I will leave a prescription for hydrocodone 10/325 if requested. ASSESSMENT #2: Acute exacerbation of lumbar radiculopathy secondary to spinal stenosis. PROCEDURE: Lumbar epidural injection with fluoroscopy. PROCEDURE NOTE: After both written and informed consent to include risk of spinal cord damage, increased pain, weakness and dural puncture, the patient was taken to the fluoroscopy suite, placed in the prone position. After sterile prep and drape, a skin wheal with lidocaine was raised. A 4-1/2 inch gauge, 20-gauge epidural Tuohy needle was inserted in the midline at L4-L5 with good loss to resistance. Negative aspiration for cerebrospinal fluid or blood was [facility] [address] [place] [address] PAIN MANAGEMENT CONSULTATION Name: TISHMALAREGINA C Room #: REG LOUIS Marshall#: [id number] Admission: 05/25/17 Attend Phys: Rory Xiong DO Discharge: Date of : 40 Report #: [id number] noted. Then 1 mL of Omnipaque under biplanar fluoroscopy showed good spread within the epidural space. This was followed with 80 mg of triamcinolone plus 1 mL of 1.5% preservative-free Xylocaine, 0.5 mL Xylocaine was then injected to flush the needle; it was removed. The patient was monitored for an appropriate period of time and discharged in good and stable condition. <ELECTRONICALLY SIGNED> By: Rory Xiong DO 05/27/17 0811 1231 0512 Rory Xiong DO /nt
[2017-05-25 11:24] VITALS: BP 136/64
== END | disposition home or self-care (01) ==
LOC: PAIN 07:02
DX: M48.061 Spinal stenosis, lumbar region without neurogenic claudication (principal); G89.29 Other chronic pain; I50.9 Heart failure, unspecified; I48.91 Unspecified atrial fibrillation; J45.909 Unspecified asthma, uncomplicated; E66.01 Morbid (severe) obesity due to excess calories; F41.8 Other specified anxiety disorders; I89.0 Lymphedema, not elsewhere classified; Z88.8 Allergy status to other drugs, medicaments and biological substances; Z79.891 Long term (current) use of opiate analgesic; Z79.899 Other long term (current) drug therapy; Z87.01 Personal history of pneumonia (recurrent); Z68.42 Body mass index [BMI] 45.0-49.9, adult

== ENCOUNTER 2017-07-16 13:22 | Inpatient (IN) | payer OTHER, BC ==
[~2017-07-16] VITALS: Ht 162.6 cm; Wt 124.7 kg
--- NOTE | ~2017-07-16 | EKG ---
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 : 1940 Requested By: Gloria Ch Order Number: [id number] MD: Gabe Manriquez Measurements Intervals [place] Rate: 106 P: [place]: QRS: 68 QRSD: 139 T: 21 QT: 377 QTc: 501 Interpretive Statements Atrial fibrillation Right bundle branch block Compared to ECG 04/01/2017 06:14:56 Right bundle-branch block now present Electronically Signed On 07-16-2017 17:42:17 CDT by Gabe Manriquez [email or web address] <ELECTRONICALLY SIGNED> By: Gabe Manriquez MD, [facility] 07/16/17 1742 1329 132 Gabe Manriquez MD, [facility] /EPI
--- NOTE | ~2017-07-16 | HC ---
[facility] [place] [address] CONSULTATION Name: REGINA WINSTON Room #: 410-[facility] IN .R.#: [id number] Admission: 07/16/17 Attend Phys: Jonn Wilson DO Discharge: Date of : 40 Report #: [id number] THIS REPORT FOR: //name// CC: Jonn Quintanilla TYPE OF REPORT: Pulmonary consultation. REFERRING PHYSICIAN: Jonn Wilson D.O. REASON FOR REFERRAL: Dyspnea. HISTORY OF PRESENT ILLNESS: The patient is a 77-year-old white female presents to the Emergency Room with progressive dyspnea. She has a history of asthma. A pulmonary consultation was requested. The patient has a long history of asthma. She is followed longitudinally by Dr. Aj Nesbitt in the office. She was last hospitalized in March 2017. She states that she was doing fairly well until about 4 days ago she had a synagogue. There were many family members present. One of the grandchildren had a runny nose. Few days ago, she started to develop nasal congestion, dyspnea and bronchospasm. With worsening symptoms, she presents to the Emergency Room. Otherwise, denies any sore throat, chest pain, productive cough, night sweats or chills. Chest x-ray on admission was grossly unremarkable. PAST MEDICAL HISTORY: Notable for asthma, history of colon cancer status post colectomy in 2005, atrial fibrillation status post ablation x 3, gastroesophageal reflux disease, lymphedema and spinal stenosis with peripheral neuropathy. PAST SURGICAL HISTORY: Bilateral hip replacement and also as mentioned above. ALLERGIES: To CLARITHROMYCIN, which causes severe pruritus and CLAVULANIC ACID causes severe pruritus. HOME MEDICATIONS: Levalbuterol, fentanyl, Mucinex, nebulized albuterol, Eliquis, Cardizem, Aldactone, Neurontin, Cymbalta, Lasix, nebulized Pulmicort, Protonix, prednisone and Duragesic 25 mg patch. FAMILY HISTORY: Noncontributory. SOCIAL HISTORY: The patient is a lifetime nonsmoker. Denies any alcohol use. She lives with the family. [facility] [address] [place] [address] CONSULTATION Name: MALA WINSTONREGINA C Room #: [address] [place] [address].#: [id number] Admission: 07/16/17 Attend Phys: Jonn Wilson DO Discharge: Date of : 40 Report #: [id number] REVIEW OF SYSTEMS: As mentioned above, otherwise 10-point system review negative. PHYSICAL EXAMINATION: GENERAL: She is awake, alert, in no apparent distress. VITAL SIGNS: Temperature is 97.7 degrees Fahrenheit, pulse is 91, respiratory rate is 20, blood pressure 119/74 mmHg and saturation is 95%. HEENT: Normocephalic and atraumatic. NECK: Supple. No lymphadenopathy or thyromegaly. CHEST: Breath sounds are good with mild expiratory wheezes. CARDIOVASCULAR: Normal S1 and S2. There is no murmur or gallop. There is no JVD. There is no carotid bruit. Pulses are 2+/4+ bilaterally. ABDOMEN: Soft and nontender. No organomegaly or masses felt and is moderately obese. GENITOURINARY: Deferred. RECTAL: Deferred. EXTREMITIES: Notable for 2-3+ bilateral pretibial edema. No cyanosis or clubbing. RADIOLOGICAL DATA: Chest x-ray shows mild left basilar atelectasis and cardiomegaly, otherwise unremarkable. LABORATORY DATA: Influenza antigen was negative. Electrolytes show sodium 136, potassium 4.4 and creatinine is normal. Liver function enzymes mildly abnormal. WBC 12,000 and hemoglobin 13.2. No evidence of bandemia. Arterial blood gas revealed pH 7.42, pCO2 of 38 and pO2 of 63 on room air. Albumin is 3.4. IMPRESSION: 1. Exacerbation asthma, possibly related to viral upper respiratory tract infection. 2. Atrial fibrillation/flutter. 3. Gastroesophageal reflux disease. 4. Obesity. 5. Lumbar spinal stenosis with peripheral neuropathy. 6. Lymphedema. 7. Allergic rhinitis. 8. Lifetime nonsmoker. RECOMMENDATIONS: We will recommend corticosteroids, bronchodilator and broad-spectrum antibiotics. DVT and GI prophylaxis recommended. [address] [address] CONSULTATION Name: REGINA WINSTON Room #: 410-P [facility] IN M.R.#: [id number] Admission: 07/16/17 Attend Phys: Jonn Wilson DO Discharge: Date of : 40 Report #: [id number] Thank you for this consultation. <ELECTRONICALLY SIGNED> By: Mejia Yancey MD 07/17/17 1553 1239 1300 Mejia Yancey MD /nt
[~2017-07-16 13:22] MED LIST changes: -CEFDINIR300 MG PO; -CIPRO500 MG PO; -FENTANYL1 EAC1 TRANSDERM; -FENTANYL1 EAC3 TRANSDERM; -FENTANYL1 EAC4 TRANSDERM; -HYDROCODONE-AP1 EA11 PO; -HYDROCORTISO28.35 G1 TOP; -MACRODANTIN50 MG PO; -MIRAPEX0.25 MG PO; -PREDNISONE 5 MG5 M1 PO; -PROTONIX40 M1 PO; -SPIRONOLACTONE25 M1 PO
[2017-07-16 13:31] VITALS: BP 150/85
[2017-07-16 14:20] LABS: ABSOLUTE NEUTROPHILS 10.9 thou/uL (1.4-8.2); BASOPHILS 0.2 % (0.0-2.0); EOSINOPHILS 0.1 % (0.0-3.0); HEMATOCRIT 40.9 % (37.0-47.0); HEMOGLOBIN 13.2 gm/dL (12.0-15.0); LYMPHOCYTES 5.7 % (24.0-44.0); MCH 26.8 pg (26.0-34.0); MCHC 32.2 g/dL (28.0-37.0); MCV 83.2 fL (80.0-100.0); MONOCYTES 2.8 % (1.0-8.0); PLATELET COUNT 220 thou/uL (150-400); POLYS 91.2 % (36.0-66.0); RBC 4.92 mil/uL (4.20-5.00); RDW 15.1 % (10.5-14.5)
[2017-07-16 14:28] LABS: ANION GAP 6 mmol/L (7-16); BUN 22 mg/dL (7-18); CALCIUM 9.7 mg/dL (8.5-10.1); CHLORIDE 101 mmol/L (98-107); CO2 29 mmol/L (21-32); CREATININE 0.9 mg/dL (0.6-1.0); GLUCOSE 168 mg/dL (74-106); POTASSIUM 4.4 mmol/L (3.5-5.1); SODIUM 136 mmol/L (136-145)
[2017-07-16 14:37] LABS: ALBUMIN 3.4 g/dL (3.4-5.0); SGOT 14 U/L (15-37); SGPT 21 U/L (30-65); TOTAL BILIRUBIN 0.5 mg/dL (<0.1-1.0); TOTAL PROTEIN 7.7 g/dL (6.4-8.2); TROPONIN-I < 0.04 ng/mL (<0.06)
[2017-07-16 15:38] VITALS: BP 150/85
[2017-07-16] MEDS ORDERED: CEFDINIR300 MG PO (15:49)
[2017-07-16 15:56] VITALS: BP 142/84
[2017-07-16 17:16] LABS: BE(vivo) 0.4 mmol/L (-2 to +3); HCO3 24.6 mmol/L (22.0-26.0); PCO2 38.5 mmHg (35.0-45.0); PO2 63.9 mmHg (80.0-100.0); pH 7.424 (7.360-7.450); sO2 92.9 % (92.0-98.0)
[2017-07-16 17:50] VITALS: BP 143/73; BP 171/85
[2017-07-16 20:29] VITALS: BP 114/58
[2017-07-17 04:44] VITALS: BP 105/59
[2017-07-17 04:54] LABS: CALCIUM 9.5 mg/dL (8.5-10.1); MAGNESIUM 2.3 mg/dL (1.8-2.4)
[2017-07-17 05:40] LABS: HEMATOCRIT 38.5 % (37.0-47.0); HEMOGLOBIN 12.4 gm/dL (12.0-15.0); MCH 27.2 pg (26.0-34.0); MCHC 32.2 g/dL (28.0-37.0); MCV 84.4 fL (80.0-100.0); RBC 4.57 mil/uL (4.20-5.00); RDW 14.9 % (10.5-14.5); WBC 8.4 thou/uL (4.0-11.0)
[2017-07-17 07:10] VITALS: BP 119/74
[2017-07-17 14:04] LABS: HEMATOCRIT 41.2 % (37.0-47.0); HEMOGLOBIN 13.1 gm/dL (12.0-15.0); MCH 26.7 pg (26.0-34.0); MCHC 31.9 g/dL (28.0-37.0); MCV 83.7 fL (80.0-100.0); RBC 4.92 mil/uL (4.20-5.00); RDW 15.1 % (10.5-14.5); WBC 12.5 thou/uL (4.0-11.0)
[2017-07-17 20:00] VITALS: BP 134/53
[2017-07-18 04:21] LABS: ABSOLUTE NEUTROPHILS 14.4 thou/uL (1.4-8.2); HEMOGLOBIN 11.9 gm/dL (12.0-15.0); LYMPHOCYTES 4.3 % (24.0-44.0); MCH 26.7 pg (26.0-34.0); MCV 83.4 fL (80.0-100.0); MONOCYTES 4.4 % (1.0-8.0); PLATELET COUNT 216 thou/uL (150-400); POLYS 91.3 % (36.0-66.0); RBC 4.44 mil/uL (4.20-5.00); RDW 14.9 % (10.5-14.5); WBC 15.8 thou/uL (4.0-11.0)
[2017-07-18 04:31] LABS: CALCIUM 9.3 mg/dL (8.5-10.1); POTASSIUM 4.1 mmol/L (3.5-5.1)
[2017-07-18 05:19] VITALS: BP 107/50
[2017-07-18 07:48] VITALS: BP 115/57
[2017-07-18 16:35] VITALS: BP 132/61
[2017-07-18 20:33] VITALS: BP 135/61
[2017-07-19 04:46] VITALS: BP 121/70
[2017-07-19 17:29] VITALS: BP 130/64
[2017-07-19 20:00] VITALS: BP 137/55
[2017-07-20 04:00] VITALS: BP 113/63
[2017-07-20 09:30] VITALS: BP 152/63
[2017-07-20] MEDS ORDERED: HYDROCORTISO28.35 G1 TOP (16:15)
[2017-07-20] MEDS ORDERED: PREDNISONE 5 MG5 MG PO (16:15)
[2017-07-20 16:26] VITALS: BP 152/63
[2017-07-20 16:30] VITALS: BP 126/63
[2017-07-20 16:33] VITALS: BP 152/63
[2017-07-20 17:07] LABS: ADENOVIRUS Negative (Negative); INFLUENZA A Negative (Negative); INFLUENZA B Negative (Negative); METAPNEUMOVIRUS Negative (Negative); PARAINFLUENZA 1 Negative (Negative); PARAINFLUENZA 2 Negative (Negative); PARAINFLUENZA 3 Negative (Negative); RHINOVIRUS Positive (Negative); RSV A Negative (Negative); RSV B Negative (Negative)
[2017-07-20 17:42] VITALS: BP 152/63
[2017-08-27] MEDS ORDERED: PREDNISONE 5 MG5 M1 PO (09:14)
[2017-08-27] MEDS ORDERED: MIRAPEX0.25 MG PO (09:40)
[2017-08-27] MEDS ORDERED: DURAGESIC1 EACH TRANSDERM (09:40)
[2017-08-27] MEDS ORDERED: NORCO 10-325 T1 EACH PO ×2 (09:40)
[2017-10-30] MEDS ORDERED: DURAGESIC25 MCG/HR TRANSDERM (08:40)
[2017-10-30] MEDS ORDERED: NORCO 7.5-3251 EACH PO ×2 (08:40→08:42)
[2018-01-14] MEDS ORDERED: MACRODANTIN50 MG PO (09:43)
[2018-01-14] MEDS ORDERED: CIPRO500 MG PO (09:44)
[2018-01-14] MEDS ORDERED: SPIRONOLACTONE25 M1 PO (09:44)
[2018-01-14] MEDS ORDERED: PROTONIX40 M1 PO (09:45)
[2018-01-14] MEDS ORDERED: NORCO 7.5-3251 EACH PO ×2 (09:47→10:41)
[2018-01-14] MEDS ORDERED: FENTANYL1 EAC4 TRANSDERM (10:41)
[2018-01-14] MEDS ORDERED: FENTANYL1 EAC3 TRANSDERM (10:41)
[2018-01-14] MEDS ORDERED: HYDROCODONE-AP1 EA11 PO (10:41)
[2018-01-14] MEDS ORDERED: FENTANYL1 EAC1 TRANSDERM (10:54)
== END 2017-07-20 17:16 | disposition home health service (06) | DRG 871 ==
LOC: ER 13:22 → EROBS 15:06 → 4N 15:06
PROVIDERS: Family Medicine; Internal Medicine Pulmonary Disease; Nurse Practitioner; Physician Assistant
DX: A41.9 Sepsis, unspecified organism (principal); J96.21 Acute and chronic respiratory failure with hypoxia; I48.92 Unspecified atrial flutter; J44.1 Chronic obstructive pulmonary disease with (acute) exacerbation; J45.901 Unspecified asthma with (acute) exacerbation; Z68.42 Body mass index [BMI] 45.0-49.9, adult; Z96.643 Presence of artificial hip joint, bilateral; I50.9 Heart failure, unspecified; K21.9 Gastro-esophageal reflux disease without esophagitis; I48.91 Unspecified atrial fibrillation; G62.9 Polyneuropathy, unspecified; J20.8 Acute bronchitis due to other specified organisms; M48.061 Spinal stenosis, lumbar region without neurogenic claudication; J30.9 Allergic rhinitis, unspecified; I89.0 Lymphedema, not elsewhere classified; D72.829 Elevated white blood cell count, unspecified; T38.0X5A Adverse effect of glucocorticoids and synthetic analogues, initial encounter; G89.29 Other chronic pain; M54.5 Low back pain; G60.9 Hereditary and idiopathic neuropathy, unspecified; R73.9 Hyperglycemia, unspecified; E66.01 Morbid (severe) obesity due to excess calories; Z79.899 Other long term (current) drug therapy; Z85.038 Personal history of other malignant neoplasm of large intestine; Z90.49 Acquired absence of other specified parts of digestive tract; Z98.42 Cataract extraction status, left eye; Z98.41 Cataract extraction status, right eye; Z88.1 Allergy status to other antibiotic agents; Z88.8 Allergy status to other drugs, medicaments and biological substances; Z82.49 Family history of ischemic heart disease and other diseases of the circulatory system; Z83.3 Family history of diabetes mellitus; Z83.6 Family history of other diseases of the respiratory system; Z87.891 Personal history of nicotine dependence
CPT/HCPCS: 10790

== ENCOUNTER → 2017-08-13 | Outpatient (CLI) | payer OTHER, BC ==
[~2017-08-13] MED LIST changes: +CEFDINIR300 MG PO; +HYDROCORTISO28.35 G1 TOP
== END ==
LOC: RAD 01:16
DX: Z12.31 Encounter for screening mammogram for malignant neoplasm of breast (principal)

== ENCOUNTER → 2017-10-30 | Outpatient (CLI) | payer OTHER, BC ==
[~2017-10-30] VITALS: Ht 157.5 cm; Wt 129.6 kg
[~2017-10-30] MED LIST changes: +MIRAPEX0.25 MG PO; +PREDNISONE 5 MG5 M1 PO
--- NOTE | ~2017-10-30 | HPC ---
[facility] [address] [address] [place] [address] PAIN MANAGEMENT CONSULTATION Name: ALISHA WINSTON Room #: REG LAURENDavid Marshall#: [id number] Admission: 10/30/17 Attend Phys: Rory Xiong DO Discharge: Date of : 40 Report #: [id number] THIS REPORT FOR: //name// CC: Sammie Xiong DATE OF SERVICE: 10/30/2017 The patient is a 77-year-old female, long treated for chronic axial back pain, lumbar radiculopathy secondary to spinal stenosis, multiple comorbidities including morbid obesity, COPD requiring complex medication management. The patient has been on Eliquis for some time for history of atrial fibrillation. Occasional epidural injections have consistently given the patient improved functional status. Last visit, she was doing better than she had in some time. She was participating in pulmonary therapy and was more active. She walked into the clinic last visit. Alisha returns to pain clinic today, she appears as her usual sedentary self. She is sitting in a wheelchair. States that her functional status has waned. We tried weaning opiate analgesics from Duragesic 25 to 12 mcg at last visit. With this, she has been taking significantly more of her hydrocodone up to occasionally 6 of the 10 mg tablets a day. Today, we had a long discussion about therapeutic options. She continues to complain of pain that is 8 on a VAS. Pain located primarily in the low back, bilateral legs, exacerbated with any activity. PHYSICAL EXAMINATION: Relatively unchanged, 77-year-old female, significantly obese with BMI 52.3 kilograms per meter squared. Blood pressure 119/68, pulse 114, respirations are 16. She is alert and oriented to person, place, and time, judged to be a reasonable historian. Upper extremity strength is generally preserved. She has a little lower extremity edema, significantly decreased strength and positive straight leg raise bilaterally. The patient has been off her Eliquis for 3 days. We reviewed the fact that opiate medications are being used to provide analgesia adequate to support activities of daily living, not attempting to achieve a specific pain score on the 0-10 Visual Analog Scale. The current opiate medications are providing sufficient analgesia to allow the patient to participate in activities of daily living. The patient is not exhibiting any aberrant behavior suggestive of drug diversion. The patient is not having any adverse reactions to medications. The patient is not suffering from daytime somnolence or mental acuity changes. The patient is managing opiate-induced constipation with appropriate jhgo-zdv-prxvuxe agents and dietary considerations. The patient was counseled on concern [place] [address] PAIN MANAGEMENT CONSULTATION Name: MALA WINSTONALISHA C Room #: [facility] Rolando#: [id number] Admission: 10/30/17 Attend Phys: Rory Xiong DO Discharge: Date of : 40 Report #: [id number] a motor vehicle while using opiate medications. A physical exam was performed and the patient's functional status was evaluated. All patients with back pain were advised against the bed rest greater than 4 days and were advised to return to normal activities. Pain score assessment was noted and the treatment plan was reviewed with the patient. All current medications, both prescribed and OTC were reviewed and reconciled on the electronic medical record. Tobacco screening was accomplished and smoking cessation was advised when indicated. BMI was noted and diet/exercise modification was recommended for all patients following outside normal parameters. I reviewed with the patient today their responsibilities to safeguard prescription medications, reviewed their responsibility to utilize medications only as prescribed by the physician. They are to seek and receive pain medications only from 1 physician group ( [facility]). They are to use 1 pharmacy and keep the clinic informed if they change pharmacies. Their responsibilities include making followup visits in a timely fashion and to avoid abrupt discontinuation of medication usage. Their responsibilities further include bringing their medications (bottles from the pharmacy with residual pills) to the visit for possible confirmation of pill counts and the patient understands it is their responsibility to submit to random drug screens to ensure both that the medications prescribed are present, and that no other controlled substances are present. All prescriptions provided today were generated electronically. ASSESSMENT#1: Lumbar radiculopathy secondary to spinal stenosis, chronic axial back pain, neurogenic claudication requiring complex medication management. The patient with multiple comorbidities including morbid obesity and chronic obstructive pulmonary disease. RECOMMENDATION: After a long discussion with the patient and one of her many daughters who is here today (she is always seen in the company of 1 or more of her daughters). We elected to resume Duragesic back at 25 mcg, increasing from the prior 12 mcg to her baseline 25 mcg patch. We will continue hydrocodone weaning from 10/325 to 7.5/325 tablet and limit 3-4 tablets a day. I have taken the liberty of writing for 3 months of this medication, Duragesic 25 mcg q.72h. and hydrocodone 7.5/325, limit 100 tablets for 30 days. ASSESSMENT #2: Acute exacerbation of lumbar radiculopathy. The patient has been off Eliquis for 3 days. She has always had consistently 50% or more relief for several months following epidural injections. RECOMMENDATION: Epidural injection under fluoroscopy today. PROCEDURE NOTE: Lumbar epidural injection under fluoroscopy. [address] [address] PAIN MANAGEMENT CONSULTATION Name: ALISHA WINSTON Room #: [facility]#: [id number] Admission: 10/30/17 Attend Phys: Rory Xiong DO Discharge: Date of : 40 Report #: [id number] PROCEDURE NOTE: After both written and informed consent to include risk of spinal cord damage, increased pain, weakness and dural puncture, the patient was taken to the fluoroscopy suite, placed in the prone position. After sterile prep and drape, a skin wheal with lidocaine was raised. A 4-1/2-inch 20-gauge Tuohy needle was inserted in the midline at L4-L5 with good loss to resistance. Negative aspiration for cerebrospinal fluid or blood was noted. Then 1 mL of Omnipaque under biplanar fluoroscopy showed good spread within the epidural space. This was followed with 80 mg of triamcinolone plus 1 mL of 1.5% preservative-free Xylocaine, 0.5 mL Xylocaine was then injected to flush the needle; it was removed. The patient was monitored for an appropriate period of time and discharged in good and stable condition. <ELECTRONICALLY SIGNED> By: Rory Xiong DO 11/02/17 0659 1218 1948 Rory Xiong DO /nt
[2017-10-30 08:21] VITALS: BP 119/68
== END | disposition home or self-care (01) ==
LOC: PAIN 06:48
DX: M48.062 Spinal stenosis, lumbar region with neurogenic claudication (principal); M54.16 Radiculopathy, lumbar region; G89.29 Other chronic pain; M54.5 Low back pain; J44.9 Chronic obstructive pulmonary disease, unspecified; I48.91 Unspecified atrial fibrillation; E66.01 Morbid (severe) obesity due to excess calories; Z79.891 Long term (current) use of opiate analgesic; Z79.899 Other long term (current) drug therapy; Z79.01 Long term (current) use of anticoagulants; Z87.891 Personal history of nicotine dependence; Z68.43 Body mass index [BMI] 50.0-59.9, adult

== ENCOUNTER → 2018-04-05 | Outpatient (CLI) | payer OTHER, BC ==
[~2018-04-05] VITALS: Ht 162.6 cm; Wt 122.5 kg
[~2018-04-05] MED LIST changes: +CIPRO500 MG PO; +CLOTRIMAZOLE10 MG TOP; +DILTIAZEM 24HR240 M2 PO; +DURAGESIC1 EAC4 TD; +DURAGESIC1 EAC4 TRANSDERM; +FENTANYL1 EAC1 TRANSDERM; +FENTANYL1 EAC3 TRANSDERM; +FENTANYL1 EAC4 TRANSDERM; +HYDROCODONE-AP1 EA11 PO; +LASIX 80 MG TAB80 MG PO; +MACRODANTIN50 MG PO; +METFORMIN HCL500 MG PO; +PRAMIPEXOLE D0.25 MG PO; +PRAMIPEXOLE DI0.5 MG PO; +PREDNISONE 10 M10 MG PO; +PROTONIX40 M1 PO; +SPIRONOLACTONE25 M1 PO; +STOOL SOFTENER100 MG PO; +TRAMADOL HCL50 MG PO
--- NOTE | ~2018-04-05 | HPC ---
[facility] [address] [address] PAIN MANAGEMENT CONSULTATION Name: REGINA WINSTON Room #: [facility] Allison.#: [id number] Admission: 04/05/18 Attend Phys: Rayshawn Parker MD Discharge: Date of : 40 Report #: [id number] THIS REPORT FOR: //name// CC: Sammie Parker DATE OF SERVICE: 04/05/2018 Followup visit for chronic low back pain with radiculopathy. The patient is here today for an epidural injection. Her last injection occurred on 01/14/2018. She typically responds very well to injections and it provides 2 solid months of pain relief with gradual return. She is looking forward to the upcoming holidays with her large family and would like another epidural injection. If provided today, this would be her fifth injection in the course of 2018, within the CDC guideline. She has had some recent bleeding of hemorrhoids. She discontinued her Coumadin in anticipation of her injection and I think that is probably a good idea given the amount of blood that she has described. She is here today with her daughter, the nurse, and they are following up with a primary care physician. PQRS REVIEW: 1. 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 2. BMI is 46.3. At 78 years of age, weight loss is challenging and although we addressed the issue, I am not anticipating that she will achieve goals easily. 3. Vital signs: Blood pressure 129/70, heart rate 82, respirations 16. 4. Pain intensity 6/10. 5. She is a fall risk in a wheelchair, obese and weak. She has not fallen in the last 3 months and she was counseled about cautious movements and stabilizing when transferring. 6. She is on the blood thinner Eliquis. 7. No history of hypertension reported. 8. She has been receiving opioid medication and has an opioid agreement on her chart signed in 10/2015. The contract was reviewed and her responsibilities in safeguarding her fentanyl and tramadol discussed. She is on fentanyl 25 mcg/mL with good results. No significant side effects. Hydrocodone 7.5/325 is taken very cautiously for breakthrough, 100 tablets lasting nearly 3 months. Tramadol is also suggested as a trial in lieu of the hydrocodone and a trial prescription of 30 tablets was given today. 9. She has completed all the risk assessment tool and is a low risk for addiction. 10. Functional assessment tool is 39/70, suggesting that she makes good effort to manage her pain and control her activities despite the pain. 11. Denies tobacco or alcohol. [address] [address] PAIN MANAGEMENT CONSULTATION Name: REGINA WINSTON Room #: [facility]#: [id number] Admission: 04/05/18 Attend Phys: Rayshawn Parker MD Discharge: Date of : 40 Report #: [id number] PHYSICAL EXAMINATION: Demonstrates a pleasant female, alert and oriented. Vital signs as noted. She is in a wheelchair. She has difficulty moving from sitting to standing position, but can support her own weight. Her gait is slow and antalgic. She has pain with all movement of the spine and tenderness across the lumbosacral segment. Mild edema is noted. Deep tendon reflexes are diminished in bilateral lower extremities in addition to the weakness, IMPRESSION: 1. Chronic intractable low back pain with radiculopathy. 2. Morbid obesity. 3. Chronic obstructive pulmonary disease. 4. Severe diffuse osteoarthritis predominantly involving the lower extremities. 5. Hypertension. 6. Atrial fibrillation. She is off her anticoagulation therapy in anticipation of an epidural injection today. PROCEDURE: She was taken to fluoroscopic suite, placed prone, skin prepped with ChloraPrep. Skin anesthetized over the L4-L5 interspace and a 20-gauge Tuohy epidural needle advanced first attempt in the epidural space with loss of resistance technique. There was no blood or CSF aspirated. A 1 mL of Omnipaque injected. Good spread of dye observed in the epidural space followed by 3 mL of 0.5% lidocaine mixed with 80 mg of triamcinolone. She tolerated the procedure well, was observed for 45 minutes and discharged. Follow up as needed. By: [id number] Rayshawn Parker MD /nt
[2018-04-05 11:05] VITALS: BP 129/70
== END | disposition home or self-care (01) ==
LOC: PAIN 00:37
DX: M54.16 Radiculopathy, lumbar region (principal); G89.29 Other chronic pain; I10 Essential (primary) hypertension; I48.91 Unspecified atrial fibrillation; J44.9 Chronic obstructive pulmonary disease, unspecified; M19.90 Unspecified osteoarthritis, unspecified site; Z79.01 Long term (current) use of anticoagulants; Z79.899 Other long term (current) drug therapy; Z87.891 Personal history of nicotine dependence; Z88.8 Allergy status to other drugs, medicaments and biological substances

== ENCOUNTER → 2018-07-01 | Outpatient (CLI) | payer OTHER, BC ==
[~2018-07-01] VITALS: Ht 162.6 cm; Wt 119.9 kg
[~2018-07-01] MED LIST changes: +NORCO 5-325 TA1 EACH PO; +OXYCODONE-ACET1 EACH PO
--- NOTE | ~2018-07-01 | HPC ---
[facility] [address] [address] PAIN MANAGEMENT CONSULTATION Name: REGINA WINSTON Room #: [facility] Allison.#: [id number] Admission: 07/01/18 ������������������ Attend Phys: Rayshawn Parker MD Discharge: ������������������ Date of : 40 Report #: [id number] THIS REPORT FOR: //name// CC: Sammie Parker DATE OF SERVICE: 07/01/2018 CHIEF COMPLAINT: Followup visit for management of chronic low back pain with radiculopathy and a secondary problem of diffuse osteoarthritis involving the lower extremities, which requires medication management. The patient is in the clinic with her daughter who is a registered nurse. I spent 30 minutes counseling today regarding the medication that we are using to help manage her chronic osteoarthritic pain. She has been on longstanding fentanyl patch, which she tolerates well. She has hydrocodone for breakthrough and that much of our discussion today centered on breakthrough medication. She has become somewhat tolerant and the 2.5 mg that she was using previously is not as helpful. The 5 mg taken as a higher dose will sometimes cause dysphoria and bad dreams. She has some mild constipation, but this has been managed fairly well. We did discuss the use of a stimulant laxative, Senokot-S, MiraLax to some degree today along with her medication. She has a bit of drowsiness that might be expected from her opioids, but they have provided more pain relief than trouble and they are grateful for the benefits. She is not a good candidate for other pain relieving medications, sees no relief from Tylenol and is on Eliquis, so should stay off nonsteroidal anti-inflammatory drugs. PQRS REVIEW: 1. She has diffuse osteoarthritis involving the upper and lower extremities, particularly the hips and knees, this affects her weightbearing. 2. Pain intensity is 6-7/10. 3. She is a fall risk and needs help with standing and walking, although with good care provided at home, she has not fallen in the last 3 months. 4. She is on Eliquis, discontinued 5 days in anticipation of an epidural injection for lumbar radiculopathy. 5. She is on an opioid agreement signed in 2016. We reviewed the terms of the agreement. 6. She is at low risk for addiction per the opioid risk tool. 7. She denies use of tobacco or alcohol. PHYSICAL EXAMINATION: She is 5 feet 4 inches, 264 pounds, BMI of 45.4. Blood pressure 144/56, heart rate 114, respirations 18. She cannot move easily from sitting to standing position, but she is stronger than she has been previously. She was able to transfer on to the examining table as well as the treatment table today. She has pain in her hips and her knees and localized tenderness. [address] [address] PAIN MANAGEMENT CONSULTATION Name: REGINA WINSTON Room #: [facility]#: [id number] Admission: 07/01/18 ������������������ Attend Phys: Rayshawn Parker MD Discharge: ������������������ Date of : 40 Report #: [id number] Range of motion is diminished. She has pain across her low back with lumbar spondylitic changes. Pain with forward flexion and extension. There are no scars. Straight leg raising is bilaterally painful. IMPRESSION: 1. Chronic low back pain with radiculopathy. Recommend epidural steroid injection under fluoroscopic guidance. 2. Severe osteoarthritis and chronic spondylitic back pain, which has responded to opioid medication. Thirty minutes in counseling. PROCEDURE: She was taken to fluoroscopic suite for the injection. She was placed prone, skin was prepped with ChloraPrep. Skin was anesthetized over the L4-L5 interspace. A 20-gauge Tuohy epidural needle advanced in the first attempt in the epidural space with loss of resistance. No blood or CSF was aspirated. 1 mL of Omnipaque injected. Good spread of dye observed in the epidural space followed by 3 mL of 1% lidocaine mixed with 80 mg of triamcinolone. She tolerated the procedure well. She was observed for 45 minutes and discharged. Followup visit planned on an as needed basis. 2. Osteoarthritis and medication management. She was given fentanyl 25 mcg patches q. 72 hours, hydrocodone 5/325 one tablet q. 6 hours for breakthrough pain, and I gave her a small prescription for oxycodone 5/325, which she will use as an alternate and opioid rotation. We discussed at length morphine milligram equivalents and they will carefully use the medication to avoid increasing her MME. Her current recommended dose of 2 tablets per day as an initiating trial would actually lower her MME. ��������������������������������������������� ���������������������������������������� By: ��������������������������������������������� [id number] Rayshawn Parker MD /nt
[2018-07-01 09:49] VITALS: BP 144/56
--- NOTE | 2018-07-01 10:03 | NUR ---
Pain Clinic Assessment: 1. History of Osteoarthritis: Left Lower Extremity Right Lower Extremity History of Rheumatoid Arthritis: Not Applicable 2. Height: 5 ft. 4 in. 162.6 cm. Weight: 264.4 lb. oz. 119.931 kg. Patient's BMI: 45.4 3. Vital Signs: BP: 144/56 Pulse: 114 Resp: 18 Temp: 02 Sat: 96 ECG Mon: 4. Pain Intensity: 6-7 5. Fall Risk: Dizziness: N Needs help standing or walking: Y Fallen in the last 3 months: N Fall risk comments: 6. Patient on Blood Thinner: AMINA 7. History of Hypertension: N 8. Opioid Therapy greater than 6 weeks: Y Opiate Contract Signed: 11/02/15 9. Risk Assessment Tool Provided: low risk 10. Functional Assessment Tool: 11. Recreational Drug Use: Never Drug Type: Tobacco Use: Former Smoker Tobacco Type: Amount or Packs/day: How Many Years: Alcohol Use: No Frequency: Quant:
== END | disposition home or self-care (01) ==
LOC: PAIN 06:59
DX: M47.26 Other spondylosis with radiculopathy, lumbar region (principal); G89.29 Other chronic pain; M19.90 Unspecified osteoarthritis, unspecified site; J44.1 Chronic obstructive pulmonary disease with (acute) exacerbation; I48.91 Unspecified atrial fibrillation; G60.8 Other hereditary and idiopathic neuropathies; Z88.8 Allergy status to other drugs, medicaments and biological substances; Z79.891 Long term (current) use of opiate analgesic; Z79.899 Other long term (current) drug therapy; Z98.890 Other specified postprocedural states

== ENCOUNTER → 2018-09-16 | Outpatient (CLI) | payer OTHER, BC ==
--- NOTE | ~2018-09-16 | HPC ---
[facility] [address] [address] PAIN MANAGEMENT CONSULTATION Name: REGINA WINSTON Room #: [facility].#: [id number] Admission: 09/16/18 ������������������ Attend Phys: Rayshawn Parker MD Discharge: ������������������ Date of : 40 Report #: [id number] THIS REPORT FOR: //name// CC: Em Parker DATE OF SERVICE: 09/16/2018 The patient is a longstanding patient of our clinic, was here today with her daughter. She complains of low back pain with radiculopathy. Pain radiates mostly into the right. She has previously been treated with lumbar injections. Her pain relief is usually noted in several days after the injection and improves her mobility. She is limited due to her body habitus. She is morbidly obese. She has a BMI in excess of 40 with a weight of 254 pounds. She also has a number of other comorbidities including severe osteoarthritis. She has had replacements of both hips. She has coronary artery disease and has had ablation for atrial fibrillation. She suffers from lymphedema as well as asthma/COPD. She has previously been treated for pancreatitis, septic arthritis and has been hospitalized for RSV infections intermittently. She has macular edema, gastroesophageal reflux disease, congestive heart failure, as well as chronic low back pain with radiculopathy secondary to spinal stenosis documented by MRI. She no longer uses tobacco and denies use of alcohol. She has completed an opioid risk tool and is at low risk for addiction. She is on Eliquis, was discontinued for 5 days in anticipation of an epidural injection today. She is clearly a fall risk. PHYSICAL EXAMINATION: GENERAL: She is pleasant and outgoing christina woman who I have known for nearly 20 years, treating her and her family. VITAL SIGNS: Her blood pressure is 122/66, heart rate 64. MUSCULOSKELETAL: She cannot move easily from sitting to standing and is unstable and considered a fall risk. She has pain across her low back and pain with forward flexion, extension and rotation. Bilateral straight leg raising reproduces pain not only in the back, but also into the hips and into the legs. She has localized tenderness across her hips. IMPRESSION: 1. Chronic low back pain with significant degenerative disease, spondylosis and [address] [address] PAIN MANAGEMENT CONSULTATION Name: REGINA WINSTON Room #: [facility] Rolando#: [id number] Admission: 09/16/18 ������������������ Attend Phys: Rayshawn Parker MD Discharge: ������������������ Date of : 40 Report #: [id number] radiculopathy. 2. Multiple joint osteoarthritis and spondylosis. 3. History of congestive heart failure. 4. Chronic obstructive pulmonary disease/asthma. 5. Gastroesophageal reflux disease. PROCEDURE: Lumbar epidural steroid injection under fluoroscopic guidance. PROCEDURE: She was taken to fluoroscopic suite, placed prone, skin prepped with ChloraPrep. Skin anesthetized over the L1-L2 interspace. We chose a higher level today due to radicular distribution of her pain. Needle was advanced in the epidural space on the first attempt using loss of resistance technique. There was no blood or CSF aspirated. A 1 mL of Omnipaque was injected and good spread of dye observed into the epidural space. This was then followed by 3 mL of 0.5% lidocaine mixed with 80 mg of triamcinolone. She tolerated the procedure well and was observed for 45 minutes and discharged. Pain score was 5, which is typical for her following her injections. Typically relief comes later. She will contact the clinic for further instructions. I did order for her prescription of [place] 5/325, 100 tablets; and fentanyl patches 25 mcg q.72 hours. She has been on longstanding opioid agreement. She understands the importance of safeguarding her medications and has had no unexpected or untoward events on the medication. She manages her constipation effectively. I reviewed her use of medication on the [facility] prescription drug monitoring and there are no unexpected entries. I am her only provider. She is instructed to safeguard her medications carefully. Additional time was spent discussing this complex medication management and the importance of using opioids in a responsible manner. Finally, she will be following up with her primary care physician regarding fatigue, which may be related to iron deficiency and she has iron replacement scheduled. Followup visit is planned for medication management and injections as necessary. ��������������������������������������������� ���������������������������������������� By: ��������������������������������������������� [id number] Rayshawn Parker MD /nt
[2018-09-16 13:28] VITALS: BP 122/66
--- NOTE | 2018-09-16 13:35 | NUR ---
Pain Clinic Assessment: 1. History of Osteoarthritis: Left Lower Extremity Right Lower Extremity History of Rheumatoid Arthritis: Not Applicable 2. Height: ft. in. cm. Weight: 258.0 lb. oz. 117.028 kg. Patient's BMI: 3. Vital Signs: BP: 122/66 Pulse: 14 Resp: 16 Temp: 02 Sat: 96 ECG Mon: 4. Pain Intensity: 5 5. Fall Risk: Dizziness: N Needs help standing or walking: Y Fallen in the last 3 months: Y Fall risk comments: FELL IN BATHROOM/FELL IN BATH TUB ON LEFT SIDE/HIT HEAD-HAD A CAT SCANN-UNREMARKABLE 6. Patient on Blood Thinner: ELIQUIS 7. History of Hypertension: N 8. Opioid Therapy greater than 6 weeks: Y Opiate Contract Signed: 11/02/15 9. Risk Assessment Tool Provided: low risk 10. Functional Assessment Tool: 39/70 11. Recreational Drug Use: Never Drug Type: Tobacco Use: Former Smoker Tobacco Type: Amount or Packs/day: How Many Years: Alcohol Use: No Frequency: Quant:
== END | disposition home or self-care (01) ==
LOC: PAIN 06:59
DX: M51.16 Intervertebral disc disorders with radiculopathy, lumbar region (principal); M47.26 Other spondylosis with radiculopathy, lumbar region; G89.29 Other chronic pain; M19.90 Unspecified osteoarthritis, unspecified site; I25.10 Atherosclerotic heart disease of native coronary artery without angina pectoris; I50.9 Heart failure, unspecified; I48.91 Unspecified atrial fibrillation; J44.9 Chronic obstructive pulmonary disease, unspecified; E66.01 Morbid (severe) obesity due to excess calories; K21.9 Gastro-esophageal reflux disease without esophagitis; F41.9 Anxiety disorder, unspecified; Z79.01 Long term (current) use of anticoagulants; Z87.19 Personal history of other diseases of the digestive system; Z68.41 Body mass index [BMI] 40.0-44.9, adult; Z98.890 Other specified postprocedural states; Z79.899 Other long term (current) drug therapy; Z87.891 Personal history of nicotine dependence; Z88.8 Allergy status to other drugs, medicaments and biological substances

== ENCOUNTER → 2019-01-24 | Outpatient (CLI) | payer OTHER, BC ==
[~2019-01-24] VITALS: Ht 162.6 cm; Wt 114.3 kg
[~2019-01-24] MED LIST changes: +BREO ELLIPTA 11 EACH INH; +DILTIAZEM 24HR120 M2 PO; +FOLIC ACID1 MG PO; +HYDROCODON-ACE1 EAC8 PO; +KLOR-CON M2020 MEQ PO; +PREDNISONE 20 M20 MG PO
[2019-01-24 13:31] VITALS: BP 137/65
--- NOTE | 2019-01-24 14:00 | NUR ---
Pain Clinic Assessment: 1. History of Osteoarthritis: NECK B/L HANDS B/L KNEES SPINE B/L ANKLES B/L HIPS PT STATES EVERYWHERE History of Rheumatoid Arthritis: Not Applicable 2. Height: 5 ft. 4 in. 162.6 cm. Weight: 252.0 lb. oz. 114.307 kg. Patient's BMI: 43.2 3. Vital Signs: BP: 137/65 Pulse: 93 Resp: 16 Temp: 02 Sat: 97 ECG Mon: 4. Pain Intensity: 4-NOW, 6-7-BAD DAY 5. Fall Risk: Dizziness: N Needs help standing or walking: Y Fallen in the last 3 months: N Fall risk comments: FELL IN BATHROOM/FELL IN BATH TUB ON LEFT SIDE/HIT HEAD-HAD A CAT SCANN-UNREMARKABLE 6. Patient on Blood Thinner: GEORGIAIS 7. History of Hypertension: N 8. Opioid Therapy greater than 6 weeks: Y Opiate Contract Signed: 11/02/15 9. Risk Assessment Tool Provided: low risk 10. Functional Assessment Tool: 11. Recreational Drug Use: Never Drug Type: Tobacco Use: Former Smoker Tobacco Type: Amount or Packs/day: How Many Years: Alcohol Use: No Frequency: Quant:
--- NOTE | 2019-01-25 09:30 | HPC ---
[facility] [address] [place] [address] PAIN MANAGEMENT CONSULTATION Name: REGINA WINSTON Room #: REG LOUIS Marshall#: [id number] Admission: 01/24/19 Attend Phys: Juliann Hernandez Discharge: Date of : 40 Report #: [id number] THIS REPORT FOR: //name// CC: Juliann Hernandez Sammie Socorro DATE OF SERVICE: 01/24/2019 CHIEF COMPLAINT: Low back pain with radiculopathy. HISTORY OF PRESENT ILLNESS: This is a 78-year-old female who returns to the pain clinic today for refill of her medications that she uses to help treat her ongoing low back pain that does radiate into her bilateral legs, with left being the worst. She also suffers from diffuse osteoarthritis involving her lower extremities. She finds her fentanyl patches very beneficial in controlling her pain as well as an occasional hydrocodone. The patient is here present with her daughter today. 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 She also has severe macular degeneration in the right, so she has decreased vision as a result of this. She was also severely anemic, per her daughter's report who is a nurse, related to hemorrhoids and on blood thinners. She finally was less anemic and they were able to perform a WATCHMAN procedure on her and will be continued to be monitored for blood clots. She is hopeful to be able to have another epidural by Dr. Rayshawn Parker later this year, once she is medically stable and be able to be off her Eliquis. She reports that she is no longer constipated and having problems with her hemorrhoids, as she was earlier in the summer, which did play a part in her anemia. She now is taking fiber on a daily basis and feels that that problem has been resolved. ALLERGIES: AUGMENTIN AND BIAXIN. CURRENT LIST OF MEDICATIONS: Fentanyl 25 mcg every 72 hours, hydrocodone 5/325 p.r.n., prednisone 20 mg daily, folic acid, Breo inhaler, potassium 20 mEq, diltiazem 120 at bedtime, gabapentin 600 mg b.i.d., Cymbalta 60 mg daily, Eliquis 5 mg b.i.d., pramipexole 0.5 mg at bedtime, Lasix 80 mg daily, stool softener, Glucophage 500 mg daily, Protonix 40 mg daily and Aldactone 25 mg daily. PQRS: 1. She has diffuse osteoarthritis. She denies any rheumatoid arthritis. 2. Height is 5 feet 4 inches, weight is 252, BMI is 43. 3. Vital signs, 137/65, pulse is 93, respirations 16, oxygen sat is 97. 4. Pain score 4/10. 5. Denies dizziness. Does need help walking. She is in a wheelchair today. 6. She is on Eliquis and also takes medicine for blood pressure. [address] [address] PAIN MANAGEMENT CONSULTATION Name: TISHMALAREGINA C Room #: CARLOS Marshall#: [id number] Admission: 01/24/19 Attend Phys: Juliann Hernandez Discharge: Date of : 40 Report #: [id number] 7. Opiate therapy is greater than 6 weeks; therefore, an opiate signed contract is on the chart. Her risk assessment tool is low. Functional assessment is 28/70. 8. Recreational drug use, she denies. She is a former smoker. Does not drink alcohol. According to the prescription monitoring system, the patient is due to fill her medications today. PHYSICAL EXAMINATION: GENERAL: This is a pleasant 78-year-old female who appears her stated age. She is alert and orientated, rating her pain score at 4/10. HEENT: The patient reports blindness in her left eye, decreased vision in her right. Mucous membranes are moist. Hearing is adequate. MUSCULOSKELETAL: She has significant difficulty moving from sitting to standing, is a considerable fall risk and very unstable on her feet. She is in a wheelchair today. Her pain radiates across her lower back with any movement. Bilateral straight raising produces pain. She has tenderness in her hips and knees, 2+ edema located in her bilateral lower extremities today. IMPRESSION: 1. Chronic low back pain with significant degeneration disease. 2. Spondylosis with radiculopathy. 3. Multiple joint osteoarthritis and spondylosis. 4. History of congestive heart failure. 5. Chronic obstructive pulmonary disease, asthma. 6. Recent WATCHMAN placement, on blood thinners. 7. Recent stroke. We reviewed the fact that opiate medications are being used to provide analgesia adequate to support activities of daily living, not attempting to achieve a specific pain score on the 0-10 Visual Analog Scale. The current opiate medications are providing sufficient analgesia to allow the patient to participate in activities of daily living. The patient is not exhibiting any aberrant behavior suggestive of drug diversion. The patient is not having any adverse reactions to medications. The patient is not suffering from daytime somnolence or mental acuity changes. The patient is managing opiate-induced constipation with appropriate rgmp-tat-lhzrddx agents and dietary considerations. The patient was counseled on concern for caution with operating a motor vehicle while using opiate medications. A physical exam was performed and the patient's functional status was evaluated. All patients with back pain were advised against the bed rest greater than 4 days and were advised to return to normal activities. Pain score assessment was noted and the treatment plan was reviewed with the patient. All current medications, both prescribed and OTC were reviewed and reconciled on the [facility] [address] [place] [address] PAIN MANAGEMENT CONSULTATION Name: REGINA WINSTON Room #: [facility].#: [id number] Admission: 01/24/19 Attend Phys: Juliann Hernandez Discharge: Date of : 40 Report #: [id number] electronic medical record. Tobacco screening was accomplished and smoking cessation was advised when indicated. BMI was noted and diet/exercise modification was recommended for all patients following outside normal parameters. I reviewed with the patient today their responsibilities to safeguard prescription medications, reviewed their responsibility to utilize medications only as prescribed by the physician. They are to seek and receive pain medications only from 1 physician group ( [facility]). They are to use 1 pharmacy and keep the clinic informed if they change pharmacies. Their responsibilities include making followup visits in a timely fashion and to avoid abrupt discontinuation of medication usage. Their responsibilities further include bringing their medications (bottles from the pharmacy with residual pills) to the visit for possible confirmation of pill counts and the patient understands it is their responsibility to submit to random drug screens to ensure both that the medications prescribed are present, and that no other controlled substances are present. All prescriptions provided today were generated electronically. PLAN: 1. We discussed treatment options with the patient and family. She has been on longstanding opioids and understands and keeps them safe. They are requesting a slight increase in her hydrocodone, which she was previously on a higher dose. She finds that half of a hydrocodone 5/325 does not control her pain enough, is requesting hydrocodone 7.5/325. Upon discussion with Dr. Rayshawn Parker, we agreed to return to that strength. Scripts given today for fentanyl 25 mcg, #10, released today, 4-week and 8-week and hydrocodone 7.5/325, #100. She does take this very sparingly and 1 prescription lasts her 3 months. 2. The patient would like another epidural steroid injection, which she finds very beneficial in controlling her pain. Luckily, she has been taking some prednisone recently due to her multiple hospitalizations and illnesses, which helps her pain some. She is hopeful to be able to have an injection in February after a SCOTTIE study performed before transitioning to Plavix. We will coordinate with the bolter helper's office a date for this epidural by Dr. Rayshawn Parker. 3. The patient is seen in collaboration with Dr. Rayshawn Parker who did see the patient as well today. <ELECTRONICALLY SIGNED> By: Jluiann Hernandez 01/25/19 0930 [id number] Juliann Hernandez /sheldon
== END ==
LOC: PAIN 06:54 → BC 06:54 → PAIN 12:44
DX: Z12.31 Encounter for screening mammogram for malignant neoplasm of breast (principal); M47.26 Other spondylosis with radiculopathy, lumbar region; G89.29 Other chronic pain; M19.90 Unspecified osteoarthritis, unspecified site; J44.9 Chronic obstructive pulmonary disease, unspecified; Z88.8 Allergy status to other drugs, medicaments and biological substances; Z79.899 Other long term (current) drug therapy

== ENCOUNTER → 2019-03-07 | Outpatient (CLI) | payer OTHER, BC ==
[~2019-03-07] VITALS: Ht 162.6 cm; Wt 113.9 kg
--- NOTE | ~2019-03-07 | HPC ---
[facility] [address] [place] [address] PAIN MANAGEMENT CONSULTATION Name: REGINA WINSTON Room #: REG [facility] SpencerFeliIsabella.#: [id number] Admission: 03/07/19 Attend Phys: Rayshawn Parker MD Discharge: Date of : 40 Report #: [id number] THIS REPORT FOR: //name// CC: Sammie Parker DATE OF SERVICE: 03/07/2019 REASON FOR VISIT: Followup visit for management of high-risk medications and for epidural injection. SUBJECTIVE: The patient is here today with two of her daughters. She has requested an epidural injection. The record will reflect that she has had intermittent injections performed over many years. She reports that these injections nearly always provided with some improvement in her pain and mobility. Her last injection was performed on 01/24/2019. If she receives another injection today, it will be her fourth injection in 2019. She is within the Medicare guidelines. Both daughters report that her pain is improved and it has been a bit long for her in between injections. It is important for her also to continue on her pain medication, which allows her to be happier and less pain and able to provide a bit more care for herself. She is on fentanyl patches 25 mcg and also uses hydrocodone 7.5/325, 3-4 times a day. Her MME calculates at 57. I have agreed to provide those medications for her under our agreement and they will safeguard the medications. She has no significant side effects. PQRS REVIEW: 1. Multiple joint arthropathies are noted neck, bilateral hands, knees, ankles and hips. She has pain everywhere, she says. 2. BMI is 43. 3. Her blood pressure 134/69, heart rate 92, respirations 16, pain intensity 6/10. 4. She is a fall risk and needs help getting up and standing. She fell in the bathroom tub recently and was taken in for a CT scan, which was unremarkable. She is on Eliquis, but discontinued it for 72 hours in anticipation of her injection. 5. She has no history of hypertensive medications. She is on an opioid agreement signed in our clinic last in 2015 and reviewed the importance of safeguarding medications. She denies use of tobacco. Alcohol is used only occasionally. IMPRESSION: [facility] [address] [place] [address] PAIN MANAGEMENT CONSULTATION Name: REGINA WINSTON Room #: [facility]#: [id number] Admission: 03/07/19 Attend Phys: Rayshawn Parker MD Discharge: Date of : 40 Report #: [id number] 1. Chronic intractable pain with radiculopathy. 2. Morbid obesity. 3. Diffuse osteoarthritis. 4. History of congestive heart failure. 5. Chronic obstructive pulmonary disease. 6. Atrial fibrillation with recent Watchman placement on anticoagulation therapy. 7. Management of high risk medications under terms of written opioid agreement. PROCEDURE: After informed consent, she was taken to fluoroscopic suite, placed prone, skin prepped with ChloraPrep. Skin anesthetized over the L2-L3 interspace. A 20-gauge Tuohy epidural needle advanced in the epidural space in first attempt using loss of resistance technique. No blood or CSF was aspirated. A 1 mL of Omnipaque injected. Good spread of dye observed in the epidural space followed by 3 mL of 0.5% lidocaine mixed with 80 mg triamcinolone. She tolerated the procedure well and was observed in the recovery room for approximately 30-45 minutes and discharged to her daughter's in good condition. There were no complications. Her pain score was 1-2 at discharge. All medications were provided for her, for now in the next 8 weeks by electronic prescribing. By: 05 [id number] Rayshawn Parker MD /nt
[2019-03-07 10:45] VITALS: BP 134/69
--- NOTE | 2019-03-07 11:03 | NUR ---
Pain Clinic Assessment: 1. History of Osteoarthritis: NECK B/L HANDS B/L KNEES SPINE B/L ANKLES B/L HIPS PT STATES EVERYWHERE History of Rheumatoid Arthritis: Not Applicable 2. Height: 5 ft. 4 in. 162.6 cm. Weight: 251.0 lb. oz. 113.853 kg. Patient's BMI: 43.1 3. Vital Signs: BP: 134/69 Pulse: 92 Resp: 16 Temp: 02 Sat: 100 ECG Mon: 4. Pain Intensity: 5-6 5. Fall Risk: Dizziness: N Needs help standing or walking: Y Fallen in the last 3 months: N Fall risk comments: FELL IN BATHROOM/FELL IN BATH TUB ON LEFT SIDE/HIT HEAD-HAD A CAT SCANN-UNREMARKABLE 6. Patient on Blood Thinner: AMINA 7. History of Hypertension: N 8. Opioid Therapy greater than 6 weeks: Y Opiate Contract Signed: 11/02/15 9. Risk Assessment Tool Provided: low risk 10. Functional Assessment Tool: 39/70 11. Recreational Drug Use: Never Drug Type: Tobacco Use: Former Smoker Tobacco Type: Amount or Packs/day: How Many Years: Alcohol Use: No Frequency: Quant:
== END | disposition home or self-care (01) ==
LOC: PAIN 06:53
DX: M54.16 Radiculopathy, lumbar region (principal); G89.29 Other chronic pain; M19.90 Unspecified osteoarthritis, unspecified site; J44.9 Chronic obstructive pulmonary disease, unspecified; I48.91 Unspecified atrial fibrillation; E66.01 Morbid (severe) obesity due to excess calories; Z98.890 Other specified postprocedural states; Z79.899 Other long term (current) drug therapy; Z79.01 Long term (current) use of anticoagulants; Z79.891 Long term (current) use of opiate analgesic; Z68.41 Body mass index [BMI] 40.0-44.9, adult

== ENCOUNTER → 2019-07-07 | Outpatient (CLI) | payer OTHER, BC ==
[~2019-07-07] VITALS: Ht 162.6 cm; Wt 109.9 kg
--- NOTE | ~2019-07-07 | HPC ---
[facility] [place] [address] [place] [address] PAIN MANAGEMENT CONSULTATION Name: REGINA WINSTON Room #: REG L[facility]IS SpencerFeliIsabella.#: [id number] Admission: 07/07/19 Attend Phys: Rayshawn Parker MD Discharge: Date of : 40 Report #: [id number] THIS REPORT FOR: cc: Sammie Quintanilla MD, Jennifer S. MD Morgan,Rayshawn Rendon MD ~ CC: Sammie Parker DATE OF SERVICE: 07/07/2019 CHIEF COMPLAINT: Chronic low back pain with radiculopathy. The patient was last seen in February and presents back to the pain clinic today with bilateral leg pain. She has had longstanding back pain, which has responded favorably to epidural injections. She developed a GI bleed in April. Her hemoglobin apparently dropped dramatically over 24 hours from 13 to 6. This has gradually now returned to baseline. It sounds as though she had a lower GI bleed with bright red bleeding. Source of bleeding per daughter was never identified. She is here today because her pain is quite miserable. She scores her pain as a 9/10 with a constant, aching, radiating sensation into both legs, left worse than right. This is consistent with previous presentations. She is not on a blood thinner at this time, would like another injection. She was taken off her Eliquis in April at the time of her GI bleed and has not fortunately had recurrence. PAST MEDICAL HISTORY: As well noted throughout the medical record. She has multiple comorbidities. She is morbidly obese. PQRS REVIEW: Positive for multiple joint osteoarthritis involving hands, knees spine, ankles, hips. She has had multiple joint replacements. BMI is 41.6, blood pressure 125/59, heart rate 114, O2 sat 97, pain intensity 9/10. She is a fall risk, fell in her bathroom within the last 3 months. A CAT scan performed, which was unremarkable. She has recovered. She is currently only on aspirin and no other anticoagulant therapies. She has a history of hypertension, under treatment. She is on an opioid agreement. I provided with medications under terms of written opioid agreement. Fentanyl patches have been helpful for her. She is grateful for the pain relief and denies significant side effects. The medications are carefully safeguarded. Her opioid risk tool score is quite low. SOCIAL HISTORY: She denies use of tobacco and alcohol. [address] [address] PAIN MANAGEMENT CONSULTATION Name: REGINA WINSTON Room #: REG [facility]#: [id number] Admission: 07/07/19 Attend Phys: Rayshawn Parkre MD Discharge: Date of : 40 Report #: [id number] PHYSICAL EXAMINATION: GENERAL: Pleasant female wearing a mask. VITAL SIGNS: As noted. She is morbidly obese. EXTREMITIES: She has difficulty moving from standing position and has antalgic features to her gait. Tenderness across the low back is present. Pain with all movements of the lumbar spine. Pain with positive straight leg raising noted radiating into the hips and further into the thighs and calves. IMPRESSION: Lumbar radiculopathy with bilateral pain. PROCEDURE: Lumbar epidural steroid injection under fluoroscopic guidance. DESCRIPTION OF PROCEDURE: She was taken to fluoroscopic suite for treatment and placed prone, skin prepped with ChloraPrep. Skin anesthetized over the L3-L4 interspace. Using biplanar fluoroscopic views, I advanced needle into the epidural space with loss of resistance. There was no blood or CSF aspirated. A 1 mL of Omnipaque injected. Good spread of dye observed. It was then followed in turn by 3 mL of 0.5% lidocaine mixed with 40 mg of triamcinolone. She tolerated the procedure well and was observed for 45 minutes and discharged. Follow up as needed. By: [id number] Rayshawn Parker MD /nt
[2019-07-07 11:00] VITALS: BP 125/59
--- NOTE | 2019-07-07 11:27 | NUR ---
Pain Clinic Assessment: 1. History of Osteoarthritis: NECK B/L HANDS B/L KNEES SPINE B/L ANKLES B/L HIPS PT STATES EVERYWHERE History of Rheumatoid Arthritis: Not Applicable 2. Height: 5 ft. 4 in. 162.6 cm. Weight: 242.2 lb. oz. 109.861 kg. Patient's BMI: 41.6 3. Vital Signs: BP: 125/59 Pulse: 114 Resp: 16 Temp: 02 Sat: 97 ECG Mon: 4. Pain Intensity: 9 5. Fall Risk: Dizziness: N Needs help standing or walking: Y Fallen in the last 3 months: N Fall risk comments: FELL IN BATHROOM/FELL IN BATH TUB ON LEFT SIDE/HIT HEAD-HAD A CAT SCANN-UNREMARKABLE 6. Patient on Blood Thinner: ASA 7. History of Hypertension: N 8. Opioid Therapy greater than 6 weeks: Y Opiate Contract Signed: 11/02/15 9. Risk Assessment Tool Provided: low risk 10. Functional Assessment Tool: 39/70 11. Recreational Drug Use: Never Drug Type: Tobacco Use: Former Smoker Tobacco Type: Amount or Packs/day: How Many Years: Alcohol Use: No Frequency: Quant:
== END | disposition home or self-care (01) ==
LOC: PAIN 06:58
DX: M54.16 Radiculopathy, lumbar region (principal); G89.29 Other chronic pain; E66.01 Morbid (severe) obesity due to excess calories; I10 Essential (primary) hypertension; J44.9 Chronic obstructive pulmonary disease, unspecified; I48.91 Unspecified atrial fibrillation; M19.90 Unspecified osteoarthritis, unspecified site; F41.9 Anxiety disorder, unspecified; Z98.890 Other specified postprocedural states; Z79.899 Other long term (current) drug therapy; Z88.8 Allergy status to other drugs, medicaments and biological substances; Z79.82 Long term (current) use of aspirin; Z68.41 Body mass index [BMI] 40.0-44.9, adult

== ENCOUNTER → 2019-10-03 | Outpatient (CLI) | payer OTHER, BC ==
[~2019-10-03] MED LIST changes: +ADVAIR 100-501 EACH INH; +DURAGESIC1 EAC4 TOP
--- NOTE | 2019-10-03 16:12 | HPC ---
[facility] [place] [address] PAIN MANAGEMENT CONSULTATION Name: REGINA WINSTON Room #: REG LOUIS Rolando#: [id number] Admission: 10/03/19 Attend Phys: Juliann Hernandez Discharge: Date of : 40 Report #: [id number] THIS REPORT FOR: cc: Sammie Quintanilla MD, Jennifer S. MD Hocker,Juliann NAPIER ~ CC: Rayshawn Parker MD DATE OF SERVICE: 10/03/2019 This is a tele-med appointment during the coronavirus or audiovisual with this patient who has consented to this tele-med appointment from 8:45 to 9:05. CHIEF COMPLAINT: Chronic low back pain with radiculopathy. HISTORY OF PRESENT ILLNESS: This is a 79-year-old female who I am speaking with for a tele-med appointment today. She reports that her pain score is a 6/10 today. She has been up most of the night with increased pain, especially in her legs. She does report low back pain as well, stating that her pain is an aching, constant pain with any activity. It is increased. It is always present. She feels that the medication has been beneficial as well as injections. Her previous injection was 07/07/[address] Rayshawn Parker for a lumbar epidural steroid injection. She reports that she did have good improvement for 6-8 weeks after that injection, but she feels that it had not been as helpful as injections in the past. She is unsure if this is because she had to wait so long due to GI issues between injections that she is wondering if she is able to have another one scheduled soon. She reports she has been feeling healthy and had no significant health issues since April. Today, the patient would like refills of her hydrocodone and fentanyl. She denies any significant issues with constipation or daytime sleepiness. ALLERGIES: AUGMENTIN AND BIAXIN. CURRENT LIST OF MEDICATIONS: Fentanyl 25 mcg patch, hydrocodone 7.5/325 p.r.n., aspirin, prednisone, folic acid, Breo, potassium, Cardizem, gabapentin, Cymbalta, diltiazem, pramipexole, Lasix, Colace, Glucophage, Protonix, spironolactone. PQRS: 1. She has diffuse osteoarthritis in multiple joints including hands, knees spines, ankles and hips with multiple joint replacements. 2. Height, weight and vital signs were deferred due to a tele-med appointment. Pain score is 6/10. 3. Fall risk: Denies dizziness. Does need significant help with ambulation, [address] [address] PAIN MANAGEMENT CONSULTATION Name: TISHMALAREGINA C Room #: [facility] Rolando#: [id number] Admission: 10/03/19 Attend Phys: Juliann Hernandez Discharge: Date of : 40 Report #: [id number] has not fallen in the last 3 months. 4. The patient is on aspirin and medicines for hypertension. 5. Opioid therapy is greater than 6 weeks; therefore, an opioid signed contract is on the chart. Risk assessment tool is low. Functional assessment is 39/70. 6. Recreational drug use, she denies. She is a former smoker and does not drink alcohol. According to the prescription monitoring system, the patient is filling appropriately. She is due to fill her medications next week. According to the CDC guidelines, her morphine mEq per day is 60-70 MME's. Physical exam is a review of systems, the patient is alert and orientated, answering all questions appropriately. She states she does wear a mask when she is out in public. She is morbidly obese. She has difficulty moving from sitting to standing position. She says she does need help. She has pain in the lower portion of her back that radiates into her bilateral legs. IMPRESSION: 1. Lumbar radiculopathy. 2. Chronic intractable pain. 3. Morbid obesity. 4. Diffuse osteoarthritis. 5. History of congestive heart failure. 6. Chronic obstructive pulmonary disease. 7. Atrial fibrillation with Watchman placement. 8. Management of high risk medications under terms of written opioid agreement. We reviewed the fact that opiate medications are being used to provide analgesia adequate to support activities of daily living, not attempting to achieve a specific pain score on the 0-10 Visual Analog Scale. The current opiate medications are providing sufficient analgesia to allow the patient to participate in activities of daily living. The patient is not exhibiting any aberrant behavior suggestive of drug diversion. The patient is not having any adverse reactions to medications. The patient is not suffering from daytime somnolence or mental acuity changes. The patient is managing opiate-induced constipation with appropriate ifrb-kwq-ukoskfm agents and dietary considerations. The patient was counseled on concern for caution with operating a motor vehicle while using opiate medications. PLAN: 1. We discussed treatment options with the patient today. The patient feels that her fentanyl patch is very beneficial as well as occasional hydrocodone; lately, she has been requiring an average of 3 hydrocodone a day due to increasing pain in her low back. We will have Dr. Rayshawn Parker send these medications electronically to her pharmacy of fentanyl 25 mcg patch #10 for 3 months and #120 hydrocodone 7.5/325. 2. We discussed the possibility of another lumbar epidural steroid injection. [address] [address] PAIN MANAGEMENT CONSULTATION Name: DAY,REGINA Marinelli Room #: [facility] Marshall#: [id number] Admission: 10/03/19 Attend Phys: Juliann Hernandez Discharge: Date of : 40 Report #: [id number] She does receive relief from periodic injections. Her last one was in June. I will set an appointment for October for her to have another lumbar epidural steroid injection by Dr. Rayshawn Parker. We did discuss the COVID virus and complications, but the patient understands them and willing to come in for an injection. 3. The patient is seen today in collaboration with Dr. Rayshawn Parker for this tele-med appointment. <ELECTRONICALLY SIGNED> By: Juliann Hernandez 10/03/19 1612 [id number] Juliann Hernandez /nt
== END ==
LOC: TELEPC 06:55 → PAIN 10:45 → TELEPC 10:50
PROVIDERS: ATTEND Clinical Nurse Specialist Adult Health
DX: M54.16 Radiculopathy, lumbar region (principal); M19.90 Unspecified osteoarthritis, unspecified site; I50.9 Heart failure, unspecified; J44.9 Chronic obstructive pulmonary disease, unspecified; I48.91 Unspecified atrial fibrillation; G89.29 Other chronic pain; E66.01 Morbid (severe) obesity due to excess calories; Z79.899 Other long term (current) drug therapy; Z88.8 Allergy status to other drugs, medicaments and biological substances

== ENCOUNTER → 2019-10-31 | Outpatient (CLI) | payer OTHER, BC ==
[~2019-10-31] VITALS: Ht 162.6 cm; Wt 112.0 kg
--- NOTE | ~2019-10-31 | HPC ---
[facility] [place] [address] PAIN MANAGEMENT CONSULTATION Name: REGINA WINSTON Room #: REG LOUIS Cooper.#: [id number] Admission: 10/31/19 Attend Phys: Rayshawn Parker MD Discharge: Date of : 40 Report #: [id number] THIS REPORT FOR: cc: Sammie Quintanilla MD, Jennifer S. MD Morgan,Rayshawn Rendon MD ~ CC: Sammie Parker DATE OF SERVICE: 10/31/2019 Followup visit for severe bilateral leg pain, lumbar radiculopathy. The patient is here today with her daughter and is hopeful that we can proceed with another epidural injection. She is currently already on high dose opioid therapy with an MME around 70-90 using fentanyl patch 25 mcg along with hydrocodone 7.5/325. I provided those to her under terms of written opioid agreement. She is grateful for the relief that they provide that is not enough. She denies significant side effects and has been on them for quite some time. She carefully safeguards her medicines. Without them, I do not think she would be able to get into her chair in the morning. Epidural injections have traditionally provided some relief, although she is a bit out of schedule. Due to the COVID-19 issues, she did not get a regular epidural injection and she was also laid up during the winter. She is here today for another injection. PQRS review is positive for diffuse osteoarthritis. She has pain in multiple joints including neck, hands, knees spine, ankles, hips. She is morbidly obese with a BMI of 42.2. She has difficulty getting up and can only walk short distances to the bathroom with a walker. Her lack of mobility contributing to her pain. Her vital signs today, blood pressure 128/58, heart rate 89, respirations 16, O2 sat 95 on room air. Pain intensity 9/10. She did fall in the bathroom on the tub hitting her head. The CT scan was performed and was unremarkable. She is on no blood thinners. No history of hypertension. Her opioid agreement has been signed and reviewed and we have also checked the prescription drug monitoring program. She is considered at low risk. Functional assessment score is 28, which is probably low. I suspect her activities are limited far more than that number. IMPRESSION: 1. Chronic intractable low back pain with radiculopathy. 2. Morbid obesity. RECOMMENDATIONS: Proceed today with lumbar epidural injection. We discussed going a bit lower in the epidural space at L4-L5. I have injected her at [address] [address] PAIN MANAGEMENT CONSULTATION Name: REGINA WINSTON [facility] [id number] Admission: 10/31/19 Attend Phys: Rayshawn Parker MD Discharge: Date of : 40 Report #: [id number] several different levels. Her last injection was a bit higher. Potential risks and benefits were reviewed and discussed. She would like to go forward with the injection. PROCEDURE: Lumbar epidural steroid injection. PROCEDURE NOTE: After both written and informed consent to include risk of spinal cord damage, increased pain, weakness and dural puncture, the patient was taken to the fluoroscopy suite, placed in the prone position. After sterile prep and drape, a skin wheal with lidocaine was raised. A 4-1/2 inch needle was inserted in the midline at L4-L5 with good loss to resistance. Negative aspiration for cerebrospinal fluid or blood was noted. Then 1 mL of Omnipaque under biplanar fluoroscopy showed good spread within the epidural space. This was followed with 80 mg of triamcinolone plus 0.5% lidocaine was then injected to flush the needle; it was removed. The patient was monitored for an. Appropriate period of time and discharged in good and stable condition. By: 1000 [id number] Rayshawn Parker MD /nt
[2019-10-31 09:07] VITALS: BP 128/58
--- NOTE | 2019-10-31 09:25 | NUR ---
Pain Clinic Assessment: 1. History of Osteoarthritis: NECK B/L HANDS B/L KNEES SPINE B/L ANKLES B/L HIPS PT STATES EVERYWHERE History of Rheumatoid Arthritis: Not Applicable 2. Height: 5 ft. 4 in. 162.6 cm. Weight: 247.0 lb. oz. 112.039 kg. Patient's BMI: 42.4 3. Vital Signs: BP: 128/58 Pulse: 89 Resp: 16 Temp: 02 Sat: 95 ECG Mon: 4. Pain Intensity: 9 5. Fall Risk: Dizziness: N Needs help standing or walking: Y Fallen in the last 3 months: N Fall risk comments: FELL IN BATHROOM/FELL IN BATH TUB ON LEFT SIDE/HIT HEAD-HAD A CAT SCANN-UNREMARKABLE 6. Patient on Blood Thinner: ASA 7. History of Hypertension: N 8. Opioid Therapy greater than 6 weeks: Y Opiate Contract Signed: 11/02/15 9. Risk Assessment Tool Provided: low risk 10. Functional Assessment Tool: 11. Recreational Drug Use: Never Drug Type: Tobacco Use: Former Smoker Tobacco Type: Amount or Packs/day: How Many Years: Alcohol Use: No Frequency: Quant:
== END | disposition home or self-care (01) ==
LOC: PAIN 06:48
PROVIDERS: ATTEND Anesthesiology Pain Medicine
DX: M54.16 Radiculopathy, lumbar region (principal); G89.29 Other chronic pain; M19.90 Unspecified osteoarthritis, unspecified site; E66.01 Morbid (severe) obesity due to excess calories; Z68.41 Body mass index [BMI] 40.0-44.9, adult; Z87.891 Personal history of nicotine dependence; Z98.890 Other specified postprocedural states; Z79.899 Other long term (current) drug therapy

== ENCOUNTER → 2019-12-28 | Outpatient (CLI) | payer OTHER, BC | LOC: RAD 08:02 | PROVIDERS: ATTEND Otolaryngology Plastic Surgery within the Head & Neck | DX: E04.2 Nontoxic multinodular goiter (principal); R13.10 Dysphagia, unspecified; R09.89 Other specified symptoms and signs involving the circulatory and respiratory systems ==

== ENCOUNTER → 2020-01-30 | Outpatient (CLI) | payer OTHER, BC ==
[~2020-01-30] VITALS: Ht 162.6 cm; Wt 114.3 kg
[2020-01-30 13:13] VITALS: BP 134/50
--- NOTE | 2020-01-30 13:23 | NUR ---
Pain Clinic Assessment: 1. History of Osteoarthritis: NECK B/L HANDS B/L KNEES SPINE B/L ANKLES B/L HIPS PT STATES EVERYWHERE History of Rheumatoid Arthritis: Not Applicable 2. Height: 5 ft. 4 in. 162.6 cm. Weight: 252.0 lb. oz. 114.307 kg. Patient's BMI: 43.2 3. Vital Signs: BP: 134/50 Pulse: 99 Resp: 18 Temp: 02 Sat: 96 ECG Mon: 4. Pain Intensity: 8 5. Fall Risk: Dizziness: N Needs help standing or walking: N Fallen in the last 3 months: N Fall risk comments: FELL IN BATHROOM/FELL IN BATH TUB ON LEFT SIDE/HIT HEAD-HAD A CAT SCANN-UNREMARKABLE 6. Patient on Blood Thinner: * 7. History of Hypertension: N 8. Opioid Therapy greater than 6 weeks: Y Opiate Contract Signed: 11/02/15 9. Risk Assessment Tool Provided: low risk-0 10. Functional Assessment Tool: 45 11. Recreational Drug Use: Never Drug Type: Tobacco Use: Former Smoker Tobacco Type: Amount or Packs/day: How Many Years: Alcohol Use: No Frequency: Quant:
--- NOTE | 2020-01-31 14:25 | HPC ---
[facility] [address] [place] [address] PAIN MANAGEMENT CONSULTATION Name: REGINA WINSTON Room #: REG LOUIS Rolando#: [id number] Admission: 01/30/20 Attend Phys: Juliann Hernandez Discharge: Date of : 40 Report #: [id number] CC: Juliann Parker MD DATE OF SERVICE: 01/30/2020 CHIEF COMPLAINT: Bilateral leg pain, lumbar radiculopathy. HISTORY OF PRESENT ILLNESS: This is a 79-year-old female who returns to the pain clinic today for refill of her opioids. She is here with her daughter who has brought her to her appointment today. She is rating a pain score of 8/10, most significantly in her back and right leg. She is complaining of neuropathic pain in her hands as well, rating her pain score at 8/10, worse with standing, walking, but she does feel that medications and massage and periodic injections are beneficial. The patient did have an injection in October. She found that it was beneficial at least 50% for 3 months. She feels that her pain is slowly returning and would like to schedule an epidural with Dr. Parker prior to discharge today. She is aware that she needs to have 2 weeks between her flu shot and an epidural injection. Therefore, she is going to schedule this at the end of this month. ALLERGIES: AUGMENTIN AND BIAXIN. CURRENT LIST OF MEDICATIONS: Fentanyl 25 mcg patch, hydrocodone 7.5/325, Advair, aspirin, folic acid, potassium, diltiazem, gabapentin, Cymbalta, pramipexole, Ventolin, Lasix, stool softener, Glucophage, Protonix, and Aldactone. PQRS: 1. She has osteoarthritis that is diffuse. Denies rheumatoid arthritis. 2. Height is 5 feet 4 inches, weight is 252, BMI is 43. 3. Vital signs; blood pressure 134/50, pulse is 90, respirations 18, oxygen sat is 96. 4. Pain score is 8/10. 5. Fall risk. Denies dizziness, does not need help walking or standing, has not fallen in the last 3 months. 6. The patient is not on a blood thinner and does take medicine for hypertension. 7. Her opioid therapy is greater than 6 weeks; therefore, an opioid signed contract is on the chart. Risk assessment is low. Functional assessment is 47/70. 8. Recreational drug use, she denies. She is a former smoker and does not drink alcohol. According to the prescription monitoring system she is due to fill her medications today, filling them in a timely fashion. Her morphine milliequivalent is 60 MME per day. PHYSICAL EXAMINATION: GENERAL: This is alert and orientated 79-year-old female who appears her stated age, placing her current pain score at 8/10. HEENT: Normocephalic, atraumatic. Extraocular eye muscles are intact. Mucous membranes are moist. She is wearing a mask. MUSCULOSKELETAL: She has difficulty moving from the standing position. She has antalgic features. Tenderness is across her lumbosacral region that does radiate into her bilateral legs, left worse. Pain is positive for straight leg raising. There is 2+ edema in her lower extremities. ASSESSMENT: 1. Chronic intractable low back pain with radiculopathy. 2. Morbid obesity. 3. Diffuse osteoarthritis. 4. Chronic intractable pain. 5. Atrial fibrillation with Watchman placement. 6. Management of high risk medications under terms of written opioid agreement. We reviewed the fact that opiate medications are being used to provide analgesia adequate to support activities of daily living, not attempting to achieve a specific pain score on the 0-10 Visual Analog Scale. The current opiate medications are providing sufficient analgesia to allow the patient to participate in activities of daily living. The patient is not exhibiting any aberrant behavior suggestive of drug diversion. The patient is not having any adverse reactions to medications. The patient is not suffering from daytime somnolence or mental acuity changes. The patient is managing opiate-induced constipation with appropriate ppek-kjw-[id number] agents and dietary considerations. The patient was counseled on concern for caution with operating a motor vehicle while using opiate medications. PLAN: 1. We discussed treatment options with the patient today. The patient finds her fentanyl patch very beneficial and would like to continue that today. She does use hydrocodone very sparingly, after she has an epidural steroid injection, she does not take that on a daily basis, typically 1 prescription of 120 pills will lasts her 3 months. The patient is requesting a refill of that medication since she is due to have an injection soon. Scripts will be sent electronically by Dr. Rayshawn Parker for fentanyl 25 mcg, #10 for 3 months and one hydrocodone 7.5/325, #120 to her pharmacy. 2. We did talk about have her flu shot prior to her steroid injection. She is due to see her primary doctor on the of this month. At that time, she will obtain her flu shot and then schedule an appointment for at least 2 weeks after that for an epidural with Dr. Rayshawn Parker. 3. The patient is seen in collaboration with Dr. Parker. <ELECTRONICALLY SIGNED> By: Juliann Hernandez 01/31/20 1425 [id number] Juliann Hernandez /nt
== END ==
LOC: PAIN 07:36
PROVIDERS: ATTEND Clinical Nurse Specialist Adult Health
DX: M54.16 Radiculopathy, lumbar region (principal); M79.604 Pain in right leg; M79.605 Pain in left leg; E66.01 Morbid (severe) obesity due to excess calories; M19.90 Unspecified osteoarthritis, unspecified site; G89.29 Other chronic pain; I48.91 Unspecified atrial fibrillation; F11.20 Opioid dependence, uncomplicated; Z88.8 Allergy status to other drugs, medicaments and biological substances; Z79.899 Other long term (current) drug therapy

== ENCOUNTER → 2020-02-23 | Outpatient (CLI) | payer OTHER, BC ==
[~2020-02-23] VITALS: Ht 162.6 cm; Wt 114.3 kg
[2020-02-23 13:26] VITALS: BP 130/61
--- NOTE | 2020-02-23 13:48 | NUR ---
Pain Clinic Assessment: 1. History of Osteoarthritis: NECK hands knees SPINE ankles hips History of Rheumatoid Arthritis: Not Applicable 2. Height: 5 ft. 4 in. 162.6 cm. Weight: 252.0 lb. oz. 114.307 kg. Patient's BMI: 43.2 3. Vital Signs: BP: 130/61 Pulse: 113 Resp: 18 Temp: 02 Sat: 97 ECG Mon: 4. Pain Intensity: 8-9 5. Fall Risk: Dizziness: N Needs help standing or walking: Y Fallen in the last 3 months: N Fall risk comments: FELL IN BATHROOM/FELL IN BATH TUB ON LEFT SIDE/HIT HEAD-HAD A CAT SCANN-UNREMARKABLE 6. Patient on Blood Thinner: None 7. History of Hypertension: N 8. Opioid Therapy greater than 6 weeks: Y Opiate Contract Signed: 11/02/15 9. Risk Assessment Tool Provided: low risk-0 10. Functional Assessment Tool: 11. Recreational Drug Use: Never Drug Type: Tobacco Use: Former Smoker Tobacco Type: Amount or Packs/day: How Many Years: Alcohol Use: No Frequency: Quant:
== END | disposition home or self-care (01) ==
LOC: PAIN 06:56
PROVIDERS: ATTEND Anesthesiology Pain Medicine
DX: M54.16 Radiculopathy, lumbar region (principal); G89.29 Other chronic pain; M54.2 Cervicalgia; I48.91 Unspecified atrial fibrillation; F41.9 Anxiety disorder, unspecified; M19.071 Primary osteoarthritis, right ankle and foot; M19.072 Primary osteoarthritis, left ankle and foot; J44.9 Chronic obstructive pulmonary disease, unspecified; Z98.890 Other specified postprocedural states; E66.01 Morbid (severe) obesity due to excess calories; Z79.899 Other long term (current) drug therapy; Z87.891 Personal history of nicotine dependence; Z88.8 Allergy status to other drugs, medicaments and biological substances

== ENCOUNTER → 2020-03-26 | Outpatient (CLI) | payer OTHER, BC ==
--- NOTE | 2020-03-27 17:06 | PATH ---
[facility] [address] [place] [address] PATHOLOGY RPT PROCEDURE Name: REGINA WINSTON Room #: REG LOUIS Isabella#: [id number] Admission: 03/26/20 Date of : 40 Discharge: Report #: [id number] Path Case #: [id number] Note [facility] Accession Number: [id number] TESTS RESULT FLAG UNITS REF RANGE LAB Clinician Provided Cytology Information No. of containers..01 Other (Miscellaneous) Source: RIGHT THYROID DIAGNOSIS: 02 RIGHT THYROID NEGATIVE FOR MALIGNANT CELLS. BETHESDA CATEGORY II. SPECIMEN CONSISTS OF BENIGN FOLLICULAR CELLS, HEMOSIDERIN-LADEN MACROPHAGES, COLLOID, AND BLOOD. THIS PATTERN IS CONSISTENT WITH A COLLOID NODULE. COLLOID IS PRESENT. RED BLOOD CELLS ARE PRESENT. THIS INTERPRETATION INCLUDES EVALUATION OF A CELL BLOCK. Pathologist ICD10: 02 E04.1 Signed out by: 02 Tavo Iglesias MD, Pathologist NPI- [id number] Performed by: Priyank Martin, Preparation Department Supervisor ([facility]) Gross description: 01 30ML, RED, 3 FX 3 DQ /LCS 03/26/2020 1855 Local FLAG LEGEND: L-Low Normal,H-High Normal,LL-Alert Low,HH-Alert High <-Panic Low,>-Panic High,A-Abnormal,AA-Critical Abnormal Performed at: 01 [facility] [address] [address] Rickey Hector MD, 02 [place] [id number] [address] Tavo Iglesias MD, Specimen Comment: A courtesy copy of this report has been sent to [phone] Specimen Comment: [id number] Specimen Comment: Report sent to / DR DOUGLASS Specimen Comment: A duplicate report has been generated due to demographic updates. [address] [address] PATHOLOGY RPT PROCEDURE Name: REGINA WINSTON Room #: [facility]#: [id number] Admission: 03/26/20 Date of : 40 Discharge: Report #: [id number] Path Case #: [id number] Performed at: [facility] [place] [address] [facility] [address], [place], [place] [id number] MD Rickey Hector MD Phone: [phone]
== END | disposition home or self-care (01) ==
LOC: ULTRA 10:45
PROVIDERS: ATTEND Internal Medicine Hematology & Oncology
DX: E04.1 Nontoxic single thyroid nodule (principal); J44.9 Chronic obstructive pulmonary disease, unspecified; I48.91 Unspecified atrial fibrillation; G62.9 Polyneuropathy, unspecified; Z98.890 Other specified postprocedural states; Z79.899 Other long term (current) drug therapy; Z79.01 Long term (current) use of anticoagulants; Z88.8 Allergy status to other drugs, medicaments and biological substances

== ENCOUNTER → 2020-05-31 | Outpatient (CLI) | payer OTHER, BC ==
[~2020-05-31] VITALS: Ht 162.6 cm; Wt 118.8 kg
[~2020-05-31] MED LIST changes: +VITAMIN D310 MC2 PO
[2020-05-31 10:26] VITALS: BP 120/69
--- NOTE | 2020-05-31 10:46 | NUR ---
Pain Clinic Assessment: 1. History of Osteoarthritis: NECK hands knees SPINE ankles hips History of Rheumatoid Arthritis: Not Applicable 2. Height: 5 ft. 4 in. 162.6 cm. Weight: 262.0 lb. oz. 118.843 kg. Patient's BMI: 45.0 3. Vital Signs: BP: 120/69 Pulse: 86 Resp: 16 Temp: 02 Sat: 97 ECG Mon: 4. Pain Intensity: 6 5. Fall Risk: Dizziness: N Needs help standing or walking: Y Fallen in the last 3 months: N Fall risk comments: FELL IN BATHROOM/FELL IN BATH TUB ON LEFT SIDE/HIT HEAD-HAD A CAT SCANN-UNREMARKABLE 6. Patient on Blood Thinner: None 7. History of Hypertension: N 8. Opioid Therapy greater than 6 weeks: Y Opiate Contract Signed: 11/02/15 9. Risk Assessment Tool Provided: low risk-0 10. Functional Assessment Tool: 45/70 11. Recreational Drug Use: Never Drug Type: Tobacco Use: Former Smoker Tobacco Type: Amount or Packs/day: How Many Years: Alcohol Use: No Frequency: Quant:
== END | disposition home or self-care (01) ==
LOC: PAIN 06:50
PROVIDERS: ATTEND Anesthesiology Pain Medicine
DX: M54.16 Radiculopathy, lumbar region (principal); G89.29 Other chronic pain; M19.90 Unspecified osteoarthritis, unspecified site; Z98.890 Other specified postprocedural states; Z79.899 Other long term (current) drug therapy; Z87.891 Personal history of nicotine dependence; Z88.8 Allergy status to other drugs, medicaments and biological substances

== ENCOUNTER → 2020-10-08 | Outpatient (CLI) | payer OTHER, BC ==
[~2020-10-08] VITALS: Ht 162.6 cm; Wt 118.8 kg
[2020-10-08 13:47] VITALS: BP 119/69
--- NOTE | 2020-10-08 14:01 | NUR ---
Pain Clinic Assessment: 1. History of Osteoarthritis: NECK hands knees SPINE ankles hips History of Rheumatoid Arthritis: Not Applicable 2. Height: 5 ft. 4 in. 162.6 cm. Weight: 262.0 lb. oz. 118.843 kg. Patient's BMI: 45.0 3. Vital Signs: BP: 119/69 Pulse: 85 Resp: 14 Temp: 02 Sat: 98 ECG Mon: 4. Pain Intensity: 5 5. Fall Risk: Dizziness: Needs help standing or walking: Fallen in the last 3 months: Fall risk comments: FELL IN BATHROOM/FELL IN BATH TUB ON LEFT SIDE/HIT HEAD-HAD A CAT SCANN-UNREMARKABLE 6. Patient on Blood Thinner: None 7. History of Hypertension: N 8. Opioid Therapy greater than 6 weeks: Y Opiate Contract Signed: 11/02/15 9. Risk Assessment Tool Provided: low risk-0 10. Functional Assessment Tool: 45 11. Recreational Drug Use: Never Drug Type: Tobacco Use: Former Smoker Tobacco Type: Amount or Packs/day: How Many Years: Alcohol Use: No Frequency: Quant:
== END ==
LOC: PAIN 10:55
PROVIDERS: ATTEND Anesthesiology Pain Medicine
DX: M54.5 Low back pain (principal); M54.16 Radiculopathy, lumbar region; E66.01 Morbid (severe) obesity due to excess calories; G89.29 Other chronic pain; F41.9 Anxiety disorder, unspecified; I48.91 Unspecified atrial fibrillation; J44.9 Chronic obstructive pulmonary disease, unspecified; Z79.899 Other long term (current) drug therapy; Z98.890 Other specified postprocedural states; Z87.891 Personal history of nicotine dependence

== ENCOUNTER → 2020-10-08 | Outpatient (CLI) | payer OTHER, BC | LOC: BC 09:27 | PROVIDERS: ATTEND Internal Medicine | DX: Z12.31 Encounter for screening mammogram for malignant neoplasm of breast (principal) ==

== ENCOUNTER → 2021-01-21 | Outpatient (CLI) | payer OTHER, BC ==
[~2021-01-21] VITALS: Ht 162.6 cm; Wt 114.8 kg
[~2021-01-21] MED LIST changes: +FENTANYL1 EACH TRANSDERM
[2021-01-21 10:17] VITALS: BP 117/83
--- NOTE | 2021-01-21 10:26 | NUR ---
Pain Clinic Assessment: 1. History of Osteoarthritis: NECK hands knees SPINE ankles hips History of Rheumatoid Arthritis: Not Applicable 2. Height: 5 ft. 4 in. 162.6 cm. Weight: 253.0 lb. oz. 114.760 kg. Patient's BMI: 43.4 3. Vital Signs: BP: 117/83 Pulse: 87 Resp: 16 Temp: 02 Sat: 100 ECG Mon: 4. Pain Intensity: 5 5. Fall Risk: Dizziness: N Needs help standing or walking: Y Fallen in the last 3 months: N Fall risk comments: FELL IN BATHROOM/FELL IN BATH TUB ON LEFT SIDE/HIT HEAD-HAD A CAT SCANN-UNREMARKABLE 6. Patient on Blood Thinner: None 7. History of Hypertension: N 8. Opioid Therapy greater than 6 weeks: Y Opiate Contract Signed: 11/02/15 9. Risk Assessment Tool Provided: low risk-0 10. Functional Assessment Tool: 45/ 11. Recreational Drug Use: Never Drug Type: Tobacco Use: Former Smoker Tobacco Type: Amount or Packs/day: How Many Years: Alcohol Use: No Frequency: Quant:
== END | disposition home or self-care (01) ==
LOC: PAIN 07:04
PROVIDERS: ATTEND Anesthesiology Pain Medicine
DX: M47.26 Other spondylosis with radiculopathy, lumbar region (principal); M54.5 Low back pain; G89.29 Other chronic pain; M48.061 Spinal stenosis, lumbar region without neurogenic claudication; E66.01 Morbid (severe) obesity due to excess calories; Z98.890 Other specified postprocedural states; Z79.899 Other long term (current) drug therapy; Z68.41 Body mass index [BMI] 40.0-44.9, adult; Z87.891 Personal history of nicotine dependence; Z88.8 Allergy status to other drugs, medicaments and biological substances

== ENCOUNTER → 2021-05-23 | Outpatient (CLI) | payer OTHER, BC ==
[~2021-05-23] VITALS: Ht 162.6 cm; Wt 121.6 kg
[2021-05-23 10:05] VITALS: BP 127/74
--- NOTE | 2021-05-23 10:24 | NUR ---
Pain Clinic Assessment: 1. History of Osteoarthritis: NECK hands knees SPINE ankles hips History of Rheumatoid Arthritis: Not Applicable 2. Height: 5 ft. 4 in. 162.6 cm. Weight: 268.0 lb. oz. 121.564 kg. Patient's BMI: 46.0 3. Vital Signs: BP: 127/74 Pulse: 95 Resp: 16 Temp: 02 Sat: 95 ECG Mon: 4. Pain Intensity: 6 5. Fall Risk: Dizziness: N Needs help standing or walking: Y Fallen in the last 3 months: Y Fall risk comments: FELL IN BATHROOM/FELL IN BATH TUB ON LEFT SIDE/HIT HEAD-HAD A CAT SCANN-UNREMARKABLE 6. Patient on Blood Thinner: None 7. History of Hypertension: N 8. Opioid Therapy greater than 6 weeks: Y Opiate Contract Signed: 11/02/15 9. Risk Assessment Tool Provided: low risk-0 10. Functional Assessment Tool: 45/70 11. Recreational Drug Use: Never Drug Type: Tobacco Use: Former Smoker Tobacco Type: Amount or Packs/day: How Many Years: Alcohol Use: No Frequency: Quant:
== END | disposition home or self-care (01) ==
LOC: PAIN 05-06 08:44
PROVIDERS: ATTEND Anesthesiology Pain Medicine
DX: M47.22 Other spondylosis with radiculopathy, cervical region (principal); G89.29 Other chronic pain; M48.061 Spinal stenosis, lumbar region without neurogenic claudication; M96.1 Postlaminectomy syndrome, not elsewhere classified; E66.09 Other obesity due to excess calories; M19.90 Unspecified osteoarthritis, unspecified site; Z98.890 Other specified postprocedural states; Z79.899 Other long term (current) drug therapy; Z87.891 Personal history of nicotine dependence; Z68.42 Body mass index [BMI] 45.0-49.9, adult; Z88.8 Allergy status to other drugs, medicaments and biological substances